=== PATIENT | female | born 1975 | race Caucasian/White ===

== ENCOUNTER 2023-07-27 10:30 | Outpatient (OUT) | payer OTHER, SELFPAY ==
[2023-07-27 12:37] LABS: Estimated Average Glucose 160 mg/dL; Glycohemoglobin A1C 7.2 % (4.5-6.2)
[2023-07-27 14:05] LABS: Glucose 134 mg/dL (74-106); Thyroid Stimulating Hormone 0.868 uIU/mL (0.358-3.740)
[2023-07-27 16:54] LABS: Free T4 1.44 ng/dL (0.76-1.46)
[2023-07-28 04:07] LABS: Progesterone <0.1 ng/mL (.); Sex Horm Binding Glob, Serum 40.9 nmol/L (24.6-122.0)
[2023-07-28 11:08] LABS: Insulin 10.5 uIU/mL (2.6-24.9)
[2023-07-28 12:09] LABS: C-Peptide, Serum 2.4 ng/mL (1.1-4.4)
[2023-07-28 17:09] LABS: Thyroglobulin Antibody <1.0 IU/mL (0.0-0.9); Thyroid Peroxidase (TPO) Ab <9 IU/mL (0-34)
[2023-07-29 12:09] LABS: Calcitriol(1,25 di-OH Vit D) 30.1 pg/mL (24.8-81.5)
[2023-07-29 16:09] LABS: Estrone, Serum 76 pg/mL (.)
[2023-07-30 12:10] LABS: Serotonin, Serum 88 ng/mL (31-207)
[2023-07-31 08:10] LABS: Free Testosterone(Direct) 0.9 pg/mL (0.0-4.2); Testosterone 14 ng/dL (4-50)
[2023-07-31 20:08] LABS: Cortisol, Free Dialysis, LCMS 0.121 ug/dL (.)
[2023-08-01 18:07] LABS: Reverse T3, Serum 38.8 ng/dL (9.2-24.1)
[2023-08-03 03:07] LABS: Thyroglobulin (TG-RIA) 3.8 ng/mL (.)
== END 2023-07-27 10:31 | disposition home or self-care (01) ==
LOC: LAB 10:35
PROVIDERS: Visit Provider Obstetrics & Gynecology
DX: E34.9 Endocrine disorder, unspecified (principal); R68.82 Decreased libido
CPT/HCPCS: 36415; 82530; 82627; 82652; 82670; 82679; 82728; 82947; 83036; 83525; 84144; 84260; 84270; 84402; 84403; 84432; 84436; 84439; 84443; 84481; 84482; 84681; 86376; 86800

== ENCOUNTER 2023-07-27 10:38 | Outpatient (OUT) | payer OTHER, SELFPAY ==
[2023-07-27 11:38] LABS: Hematocrit 40.8 % (36.0-48.0); Hemoglobin 13.7 g/dL (12.0-16.0); Mean Corpuscular HGB Conc 33.6 g/dL (29.9-35.2); Mean Corpuscular Hemoglobin 29.3 pg (26.7-34.0); Mean Corpuscular Volume 87.4 fL (81.0-99.0); Mean Platelet Volume 9.2 fL (9.5-13.5); Platelet Count 299 10^3/uL (150-450); Red Blood Count 4.67 10^6/uL (4.20-5.40); Red Cell Distribution Width 11.9 % (11.0-15.0); White Blood Count 7.9 10^3/uL (4.0-11.0)
[2023-07-27 13:15] LABS: Alanine Aminotransferase 49 U/L (14-59); Albumin Level 3.7 g/dL (3.4-5.0); Alkaline Phosphatase 100 U/L (46-116); Aspartate Amino Transferase 20 U/L (15-37); BUN Creatinine Ratio 22.8; Bilirubin Total 0.8 mg/dL (0.2-1.0); Calcium 9.3 mg/dL (8.5-10.1); Carbon Dioxide 26.8 mmol/L (21.0-32.0); Chloride 100 mmol/L (98-107); Chol HDL Ratio 2.8; Cholesterol 162 mg/dL (<=200); Estimated GFR (African America >60 (>=60); Estimated GFR (Non-African Ame >60 (>=60); Globulin 3.7 g/dL; Glucose 131 mg/dL (74-106); HDL Cholesterol 58 mg/dL (40-60); Magnesium 1.7 mg/dL (1.8-2.4); Potassium 3.8 mmol/L (3.5-5.1); Sodium 138 mmol/L (136-145); Total Protein 7.4 g/dL (6.4-8.2); Triglycerides 169 mg/dL (<=150); VLDL CHOLESTEROL 33.8 mg/dL
[2023-07-27 13:16] LABS: Percent Iron Saturation 34.1 %
[2023-07-27 13:22] LABS: Microalbumin Urine Random 5.2 mg/dL (<=30.0)
== END 2023-07-27 10:39 | disposition home or self-care (01) ==
LOC: LAB 10:39
DX: E34.9 Endocrine disorder, unspecified (principal); R68.82 Decreased libido; E11.9 Type 2 diabetes mellitus without complications; Z79.899 Other long term (current) drug therapy; E03.9 Hypothyroidism, unspecified; E83.42 Hypomagnesemia
CPT/HCPCS: 36415; 80053; 80061; 82043; 82306; 82530; 82607; 82627; 82652; 82670; 82679; 82728; 82947; 83036; 83525; 83540; 83550; 83735; 84144; 84260; 84270; 84402; 84403; 84432; 84436; 84439; 84443; 84481; 84482; 84681; 85027; 86376; 86800

== ENCOUNTER 2023-11-27 08:29 | Outpatient (OUT) | payer OTHER, SELFPAY ==
[2023-11-30 19:07] LABS: Free Testosterone(Direct) 2.2 pg/mL (0.0-4.2); Testosterone 76 ng/dL (4-50)
== END 2023-11-27 08:30 | disposition home or self-care (01) ==
LOC: LAB 08:31
PROVIDERS: Visit Provider Obstetrics & Gynecology
DX: E34.9 Endocrine disorder, unspecified (principal)
CPT/HCPCS: 36415; 84402; 84403

== ENCOUNTER 2023-12-07 20:02 | Outpatient (REF) | payer OTHER, SELFPAY ==
--- OUTSIDE RECORDS SUMMARY | 2023-12-07 20:06 | XMS_ITS | CCD ---
Author Organization [facility] Inform ion Partnership [facility] Care Team Providers Care Rodeo Performer Name Role Phone MARLEE MORENO Admitting Unavailable MARLEE MORENO Attending Unavailable MARLEE MORENO Consulting Unavailable BESSY CYR Referring Unavailable SUSY TERRY Referring Unavailable SHANTI PALMER Primary Care Unavailable ESE LIRA Attending Unavailable SHANTI PALMER Referring Unavailable SHANTI PALMER Primary Care Unavailable Allergies Allergy Classification Reported Allergen(s) Allergy Type Date of Onset Reaction(s) Facility (1 source) BEE VENOM PROTEIN (HONEY BEE); Translations: [BEE VENOM PROTEIN (HONEY BEE)] Propensity to adverse reactions to drug (disorder) 1 [facility] (1 source) BEESWAX; Translations: [BEESWAX] Propensity to adverse reactions to drug (disorder) 9 [facility] Problems Active Problems Problem Classification Problem Date Documented Date Episodic/Chronic Essential hypertension (1 source) Essential (primary) hypertension; Translations: [Essential (primary) hypertension] Onset: 01-25-2020 Chronic Immunizations and screening for infectious disease (1 source) Encounter for screening for human papillomavirus (HPV); Translations: [ENC SCREENING HUMAN PAPILLOMAVIRUS] Onset: 03-23-2019 Episodic Other screening for suspected conditions (not mental disorders or infectious disease) (4 sources) Encounter for screening for malignant neoplasm of cervix; Translations: [ENC SCREENING MALIG NEOPLASM CERV] Onset: 03-20-2019 Episodic Past or Other Problems Problem Classification Problem Date Documented Da te Episodic/Chronic Cardiac dysrhythmias (1 source) Palpitations; Translations: [Palpitations] Onset: 01-25-2020 Episodic Sprains and strains (3 sources) Sprain of unspecified parts of lumbar spine and pelvis, initial encounter; Translations: [Strain of unspecified muscle, fascia and tendon at shoulder and upper arm level, right arm, initial encounter] Onset: 03-22-2023 Episodic Results Test Name Value Interpretation Reference Range Facil ity US PELVIC COMPLETE W/ TVon 1 05-08-2022 US PELVIC COMPLETE W/ TV CLINICAL HISTORY: Abnormal uterine bleeding COMPARISON: NONE. TECHNIQUE: Grayscale images and Doppler images transabdominal and endovaginal images of the pelvis were obtained in multiple planes. FINDINGS: The uterus measures 9.3 x 5.8 x 4.6 cm the uterus is anteverted. There are no solid lesions. There are small calcifications in the uterus. The endometrium measures 3 mm. There is a 7 mm simple cyst in the cervix, nabothian cysts. There is no free fluid. The right ovary measures 5.8 x 3.5 x 4.2 cm there is a simple cyst in the right ovary with a diameter 3.5 x 3.2 x 3.3 cm The left ovary measures 2.6 x 2.1 x 2.6 cm there are no solid or cystic lesions. Both ovaries demonstrate vascular flow. IMPRESSION: The study is within normal limits. There is a simple cyst in the right ovary. There is a nabothian cyst in the cervix. ELECTRONICALLY SIGNED BY: Iron Blanco MD Normal Not Available PAP ACOG PANEL 2: 30 to 65on 03-22-2019 Age Gdln ACOG Testing 30-65 Normal [facility] Comment on above: Performed By: #### [id number] #### [facility] [address] [place] [address] Jacobo Haji COMMENT Comment Normal [facility] Comment on above: Result Comment: Z01.419 Performed at: WB Performed By: #### [id number] #### [facility] [address] [place] [address] Jacobo Haji DIAGNOSIS: Comment Normal [facility] Comment on above: Result Comment: NEGATIVE FOR INTRAEPITHE LIAL LESION OR MALIGNANCY. Performed at: WB Performed By: #### [id number] #### [facility] [address] [place] [address] Jacobo Haji HPV Aptima Negative Normal Negative [facility] Comment on above: Result Comment: This nucleic acid amplif ication test detects fourteen high-risk HPV types (16,18,31,33,35,39,45,51,52,56,58,59,66,68) without differentiation. Performed at: =G Performed By: #### [id number] #### [facility] [address] [place] [address] Jacobo Haji Methodology: Comment [facility] Comment on above: Result Comment: This liquid based ThinPr ep(R) pap test was screened with the use of an image guided system. Performed at: WB Performed By: #### [id number] #### [facility] [address] [place] [address] Jacobo Haji Note: Comment Normal [facility] Comment on above: Result Comment: The Pap smear is a scree kade test designed to aid in the detection of premalignant and malignant conditions of the uterine cervix. It is not a diagnostic procedure and should not be used as the sole means of detecting cervical cancer. Both false-positive and false-negative reports do occur. . Performed at: WB Performed By: #### [id number] #### [facility] [address] [place] [address] Jacobo Haji Performed by: Comment Normal [facility] Comment on above: Result Comment: Mojgan Harris, Cytotechn ologist (ASCP) Performed at: WB Performed By: #### [id number] #### [facility] [address] [place] [address] Jacobo Haji Specimen adequacy: Comment [facility] Comment on above: Result Comment: Satisfactory for evaluat ion. Endocervical and/or squamous metaplastic cells (endocervical component) are present. Performed at: WB Performed By: #### [id number] #### [facility] [address] [place] [address] Jacobo Haji . . Normal [facility] Comment on above: Result Comment: Performed at: WB Performed By: #### [id number] #### [facility] [address] [place] [address] Jacobo Haji Encounters Encounter Date Encounter Type Care Provider Facility Start: 09-28-2023 End: 09-28-2023 [facility] Start: 03-22-2023 End: 04-19-2023 ambulatory SUSY TERRY [facility] Start: 03-08-2023 End: 03-09-2023 ambulatory BESSY CYR Not Available Start: 03-20-2019 End: 03-20-2019 Patient encounter procedure MARLEE MORENO Facility:H1 Procedures Date Procedure Procedure Detail Performing Clinician Start: 09-28-2023 Follow-up visit Follow-up ESE LIRA Payers Date Payer Category Payer Unknown [id number] 1975 Unknown [id number] 2.16.84 [id number] 1975 Unknown [id number] 1975 Unknown [id number] 2.16.8 [id number] 1975 Unknown [id number] 2.16.84 [id number] 1959 Unknown [id number] Summary Purpose Family History No Family History Records FoundNo Family History Records FoundNo Family History Records FoundNo Family History Records Found Advance Directives No Advanced Directives Records FoundNo Advanced Directives Records FoundNo Advanced Directives Records FoundNo Advanced Directives Records Found Additional Source Comments INFORMATION SOURCE (unrecogn ized section and content) DATE CREATED AUTHOR 03/23/2019 [facility] DATE CREATED AUTHOR AUTHOR'S ORGANIZ ATION 03/13/2023 [facility] EPIC DATE CREATED AUTHOR AUTHOR'S ORGANIZ ATION 07/31/2023 [facility] DATE CREATED AUTHOR AUTHOR'S ORGANIZ ATION 09/28/2023 [facility] FOR RECORDS PERTAINING TO PATIENTS WHO ARE OR HAVE BEEN ENROLLED IN A CHEMICAL DEPENDENCY/SUBSTANCEABUSE PROGRAM, SOME INFORMATION MAY BE OMITTED. This clinical summary was aggregated from multiple sources. Caution should be exercised in using it in the provision of clinical care. This summary normalizes information from multiple sources, and as a consequence, information in this document may materially change the coding, format and clinical context of patient data. In addition, data may be omitted in some cases. CLINICAL DECISIONS SHOULD BE BASED ON THE PRIMARY CLINICAL RECORDS. [facility]. provides no warranty or guarantee of the accuracy or completeness of information in this document.
[2023-12-15 13:08] LABS: Age Gdln ACOG Testing Note (.); HPV Aptima Negative (Negative); IGP, Aptima HPV, rfx 16/18,45 Note (.)
== END 2023-12-07 20:03 | disposition home or self-care (01) ==
LOC: LAB 20:02
PROVIDERS: Visit Provider Physician Assistant
DX: Z01.419 Encounter for gynecological examination (general) (routine) without abnormal findings (principal)
CPT/HCPCS: 87624; 88175

== ENCOUNTER 2023-12-30 07:37 | Outpatient (REF) | payer OTHER, SELFPAY ==
--- OUTSIDE RECORDS SUMMARY | 2024-01-10 07:40 | XMS_ITS | CCD ---
Author Organization [facility] Care Team Providers Care Freelance Recruiter Name Role Phone MARLEE MORENO Admitting Unavailable MARLEE MORENO Attending Unavailable MARLEE MORENO Consulting Unavailable GER ABFIOR Referring Unavailable SUSY TERRY Referring Unavailable SHANTI PALMER Primary Care Unavailable ESE LIRA Attending Unavailable SHANTI PALMER Referring Unavailable SHANTI PALMER Primary Care Unavailable DO Rosalva Ho Attending Provider AHMED, ABEER Referring Unavailable KILEY SHELLEY Attending Unavailable ROSALVA HO Attending Unavailable Rosalva Ho Attending Unavailable Rosalva Ho Admitting Unavailable Allergies Allergy Classification Reported Allergen(s) Allergy [...] Results Test Name Value Interpretation Reference Range Jennifer Wilkins 12-30-2023 L Specimen: [id number] Received: 12/31/23 Status: LUANA Harris Num: [id number] Spec Type: Surgical Subm Dr: Rosalva Ho Tissues: A Endometrium - Biopsy (ENDOMETRIUM) Procedures: HE/2, Gross/Micro L4 Age/ Patient Sex Location Account Attending Physician Cecilia Salas 48/F [facility] [id number] Rosalva Ho SPEC NUM: [id number] RECD: 12/31/23 STATUS: LUANA HARRIS NUM: [id number] LOLI: 12/30/23 DR: Rosalva Ho ENTERED: 12/31/[address] [facility] [address]: James,Lab SPEC TYPE: Surgical DEPT: WERNER DORMAN ENTERED BY: [id number] RECV BY: [id number] ORDERED: HE/2, Gross/Micro L4 ORDERED: HE/2, Gross/Micro L4 Pathological Diagnosis Endometrium, biopsy: Secretory endometrium. Clinical Information Menorrhagia Gross Description The specimen was received in formalin with the patient's name and endometrium and consists of multiple calix-pink soft tissue fragments measuring 1.5 x 1.0 x 0.4 cm in aggregate. The specimen is filtered and entirely submitted in cassette A1. CPT Codes 22988 Specimen: [id number] Received: 12/31/23-1353 Status: LUANA Harris Num: [id number] Spec Type: Surgical Subm Dr: Rosalva Ho Tissues: A Endometrium - Biopsy (ENDOMETRIUM) Procedures: HE/2, Gross/Micro L4 Patient: Cecilia Salas [id number] (Continued) Signed (signature on file) Amado Ring MD 01/06/24 1608 Normal [facility] US PELVIC COMPLETE W/ TVon 05-08-2022 US PELVIC COMPLETE W/ TV CLINICAL [...] BY: Iron Blanco MD Normal Not Available US PELVIC COMPLETE W/ TV CLINICAL HISTORY: [...] 03-22-2019 Age Gdln ACOG Testing 30-65 Normal [facility] Comment on above: Performed By: #### [id number] #### [facility] [address] [address] Jacobo Haji COMMENT Comment Normal [facility] Comment on above: Result Comment: Z01.419 Performed at: WB Performed By: #### [id number] #### [facility] [address] [place], [place] [address] Jacobo Haji DIAGNOSIS: Comment Normal [facility] Comment on above: Result Comment: NEGATIVE FOR INTRAEPITHE LIAL LESION OR MALIGNANCY. Performed at: WB Performed By: #### [id number] #### [facility] [address] [id number] Jacobo Haji HPV Aptima Negative Normal Negative [facility] Comment on above: Result Comment: This nucleic acid amplif ication test detects fourteen high-risk HPV types (16,18,31,33,35,39,45,51,52,56,58,59,66,68) without differentiation. Performed at: =G Performed By: #### [id number] #### [facility] [address] [place] [address] Jacobo Haji Methodology: Comment Normal [facility] Comment on above: Result Comment: This liquid based ThinPr ep(R) pap test was screened with the use of an image guided system. Performed at: WB Performed By: #### 4 [id number] #### [facility] [address] [place] [address] Jacobo Haji Note: Comment Normal [facility] Comment on above: Result Comment: The Pap smear is a scree kade test designed to aid in the detection of premalignant and malignant conditions of the uterine cervix. It is not a diagnostic procedure and should not be used as the sole means of detecting cervical cancer. Both false-positive and false-negative reports do occur. . Performed at: WB Performed By: #### [id number] #### [facility] [address] [place] [address] Jacobo Haji Performed by: Comment Normal [facility] Comment on above: Result Comment: Mojgan Harris Cytotechn ologist (ASCP) Performed at: WB Performed By: #### [id number] #### [facility] [address] [place] [address] Jacobo Haji Specimen adequacy: Comment Normal [facility] Comment on above: Result Comment: Satisfactory for evaluat ion. Endocervical and/or squamous metaplastic cells (endocervical component) are present. Performed at: WB Performed By: #### 4 [id number] #### [facility] [address] [place] [address] Jacobo Haji . . Normal [facility] Comment on above: Result Comment: Performed at: WB Performed By: #### [id number] #### [facility] [address] [place] [address] Jacobo Haji Encounters Encounter Date Encounter Type Care Provider Facility Start: 12-30-2023 End: 12-30-2023 ambulatory Rosalva Ho [facility] Work Phone: Start: 12-30-2023 End: 12-30-2023 Departed Referred DO Rosalva Ho Work Phone: [facility] Path [facility] Start: 12-30-2023 End: 12-30-2023 ambulatory ROASLVA HO Not Available Start: 12-07-2023 End: 12-07-2023 ambulatory KILEY SHELLEY Not Available Start: 09-28-2023 End: 09-28-2023 ambulatory ESE LIRA [facility] Start: 03-22-2023 End: 04-19-2023 ambulatory SUSY TERRY [facility] Start: 03-08-2023 End: 03-09-2023 ambulatory ABEER AHMED Not Available Start: 03-08-2023 End: 03-08-2023 ambulatory ABEER AHMED Not Available Start: 03-20-2019 End: 03-20-2019 Patient encounter procedure MARLEE MORENO Facility:H1 Procedures Date Procedure Procedure Detail Performing Clinician Start: 09-28-2023 Follow-up visit Follow-up ESE LIRA Payers Date Payer Category Payer Self-pay [id number] 2023 Unknown [id number] 1975 Unknown [id number] 2.16.84 [id number] 1975 Unknown [id number] 2.16.840 .[id number] 1975 Unknown [id number] 2.16.8 [id number] 1976 Unknown [id number] 2.16.84 [id number] 1976 Unknown [id number] 2.16.84 [id number] 1976 Unknown [id number] 2.16.84 [id number] 1959 Unknown [id number] Unknown [facility] [id number] Social History Date Type Detail Facility [facility] Work Phone: Start: 1975 Sex Assigned At Female F [facility] Evaluation note Note Date & Type Note Facility Evaluation note No assessment information availa ble [facility] Work Phone: Summary Purpose Family History No Family History [...] and content) DATE CREATED AUTHOR 03/23/2019 [facility] DATE CREATED AUTHOR AUTHOR'S ORGANIZ ATION 03/13/2023 [facility] EPIC DATE CREATED AUTHOR AUTHOR'S ORGANIZ ATION 09/28/2023 [facility] DATE CREATED AUTHOR AUTHOR'S ORGANIZ ATION 01/01/2024 [facility] EPIC DATE CREATED AUTHOR AUTHOR'S ORGANIZ ATION 01/02/2024 [facility] DATE CREATED AUTHOR AUTHOR'S ORGANIZ ATION 01/09/2024 [facility] Care Teams (unrecognized sec tion and content) Team Status: Inactive Member Role Status Dates Rosalva Ho DO Attending Provider Active Start : December 30, 2023 End: December 30, 2023 Goals (unrecognized section and content) Goals may be documented in a n alternate section FOR RECORDS PERTAINING TO PATIENTS WHO ARE [...] BE BASED ON THE PRIMARY CLINICAL RECORDS. [facility]. provides no warranty or guarantee of the accuracy or completeness of information in this document.
== END 2023-12-30 07:38 | disposition home or self-care (01) ==
LOC: LAB 07:37
PROVIDERS: Visit Provider Obstetrics & Gynecology
DX: N92.0 Excessive and frequent menstruation with regular cycle (principal)
CPT/HCPCS: 88305

== ENCOUNTER 2024-01-13 12:32 | Outpatient (OUT) | payer OTHER, SELFPAY ==
--- OUTSIDE RECORDS SUMMARY | 2024-01-13 12:40 | XMS_ITS | CCD ---
Author Organization [facility] Care Team Providers Care Deputy Court Clerk Name Role Phone MARLEE MORENO Admitting Unavailable MARLEE MORENO Attending Unavailable MARLEE MORENO Consulting Unavailable GER ABFIOR Referring Unavailable SUSY TERRY Referring Unavailable SHANTI PALMER Primary Care Unavailable ESE LIRA Attending Unavailable SHANTI PALMER Referring Unavailable SHANTI PALMER Primary Care Unavailable DO Rosalva Ho Attending Provider [phone] AHMED, ABEER Referring Unavailable KILEY SHELLEY Attending [...] Reference Range Jennifer Wilkins 12-30-2023 L Specimen: [id number] Received: 12/31/23 Status: LUANA Harris Num: [id number] Spec Type: Surgical Subm Dr: Rosalva Ho Tissues: A Endometrium - Biopsy (ENDOMETRIUM) Procedures: HE/2, Gross/Micro L4 Age/ Patient Sex Location Account Attending Physician Cecilia Salas 48/F [facility] [id number] Rosalva Ho SPEC NUM: [id number] RECD: 12/31/23 STATUS: LUANA HARRIS NUM: [id number] LOLI: 12/30/23 DR: Rosalva Ho ENTERED: 12/31/23 [facility] DR: James,Lab SPEC TYPE: Surgical DEPT: WERNER DORMAN ENTERED BY: [id number] RECV BY: [id number] ORDERED: HE/2, Gross/Micro L4 ORDERED: HE/2, Gross/Micro L4 Pathological Diagnosis Endometrium, biopsy: Secretory endometrium. Clinical Information Menorrhagia Gross Description The specimen was received in formalin with the patient's name and endometrium and consists of multiple calix-pink soft tissue fragments measuring 1.5 x 1.0 x 0.4 cm in aggregate. The specimen is filtered and entirely submitted in cassette A1. CPT Codes 47623 Specimen: [id number] Received: 12/31/23-1353 Status: LUANA Harris Num: [id number] Spec Type: Surgical Subm Dr: Rosalva Ho Tissues: A Endometrium - Biopsy (ENDOMETRIUM) Procedures: HE/2, Gross/Micro L4 Patient: Cecilia Salas [id number] (Continued) Signed (signature on file) Amado Ring MD 01/06/24 1608 Normal [facility] US PELVIC COMPLETE W/ [...] 03-22-2019 Age Gdln ACOG Testing 30-65 Normal [facility] Comment on above: Performed By: #### [id number] #### [facility] [address] [address] Jacobo Haji COMMENT Comment Normal [facility] Comment on above: Result Comment: Z01.419 Performed at: WB Performed By: #### [id number] #### [facility] [address] [place], [place] [address] Jacobo Haji DIAGNOSIS: Comment Normal [facility] Comment on above: Result Comment: NEGATIVE FOR INTRAEPITHE LIAL LESION OR MALIGNANCY. Performed at: WB Performed By: #### [id number] #### [facility] [address] [id number] Jacobo Haji HPV Aptima Negative Normal Negative [facility] Comment on above: Result Comment: This nucleic acid amplif ication test detects fourteen high-risk HPV types (16,18,31,33,35,39,45,51,52,56,58,59,66,68) without differentiation. Performed at: =G Performed By: #### [id number] #### [facility] [address] [place] [address] Jacobo Haji Methodology: Comment Normal [facility] Comment on above: Result Comment: This liquid based ThinPr ep(R) pap test was screened with the use of an image guided system. Performed at: WB Performed By: #### [id number] #### [facility] [address] [place] [address] Jacobo Haji Note: Comment Normal [facility] Comment on above: Result Comment: The Pap smear is a scree kade test designed to aid in the detection of premalignant and malignant conditions of the uterine cervix. It is not a diagnostic procedure and should not be used as the sole means of detecting cervical cancer. Both false-positive and false-negative reports do occur. . Performed at: WB Performed By: #### [id number] #### [facility] [address] [place] [address] Jacobo Haji Performed by: Comment Normal [facility] Comment on above: Result Comment: Mojgan Harris Cytotechn ologist (ASCP) Performed at: WB Performed By: #### [id number] #### [facility] [address] [place] [address] Jacobo Haji Specimen adequacy: Comment Normal [facility] Comment on above: Result Comment: Satisfactory for evaluat ion. Endocervical and/or squamous metaplastic cells (endocervical component) are present. Performed at: WB Performed By: #### [id number] #### [facility] [address] [place] [address] Jacobo Haji . . Normal [facility] Comment on above: Result Comment: Performed at: WB Performed By: #### [id number] #### [facility] [address] [place] [address] Jacobo Haji Encounters Encounter Date Encounter Type Care Provider Facility Start: 12-30-2023 End: 12-30-2023 ambulatory Rosalva Ho [facility] Work Phone: Start: 12-30-2023 End: 12-30-2023 Departed Referred DO Rosalva Ho Work Phone: [facility] Path [facility] Start: 12-30-2023 End: 12-30-2023 ambulatory ROSALVA HO Not Available Start: 12-07-2023 End: 12-07-2023 ambulatory KILEY SHELLEY Not Available Start: 09-28-2023 End: 09-28-2023 ambulatory ESE LIRA [facility] Start: 03-22-2023 End: 04-19-2023 ambulatory SUSY TERRY [facility] Start: 03-08-2023 End: 03-09-2023 ambulatory ABEER AHMED Not Available Start: 03-08-2023 End: 03-08-2023 ambulatory ABEER AHMED Not Available Start: 03-20-2019 End: 03-20-2019 Patient encounter procedure MARLEE MORENO Facility:H1 Procedures Date Procedure Procedure Detail Performing Clinician Start: 09-28-2023 Follow-up visit Follow-up ESE LIRA Payers Date Payer Category Payer Self-pay [id number] 2023 Unknown [id number] 1975 Unknown [id number] 2.16.84 [id number] 1975 Unknown [id number] 2.16.840 .[id number] 1975 Unknown [id number] 2.16.8 [id number] 1975 Unknown [id number] 2.16.84 [id number] 1975 Unknown [id number] 2.16.84 [id number] 1976 Unknown [id number] 2.16.84 [id number] 1959 Unknown [id number] Unknown [facility] [id number] Social History Date Type Detail Facility [facility] Work Phone: Start: 1975 Sex Assigned At Female F [facility] Evaluation note Note Date & Type Note Facility Evaluation note No assessment information availa ble [facility] Work Phone: Summary Purpose Family [...] and content) DATE CREATED AUTHOR 03/23/2019 [facility] DATE CREATED AUTHOR AUTHOR'S ORGANIZ ATION 03/13/2023 [facility] EPIC DATE CREATED AUTHOR AUTHOR'S ORGANIZ ATION 09/28/2023 [facility] DATE CREATED AUTHOR AUTHOR'S ORGANIZ ATION 01/01/2024 [facility] EPIC DATE CREATED AUTHOR AUTHOR'S ORGANIZ ATION 01/02/2024 [facility] DATE CREATED AUTHOR AUTHOR'S ORGANIZ ATION 01/09/2024 [facility] Care Teams (unrecognized sec [...] BE BASED ON THE PRIMARY CLINICAL RECORDS. [facility]. provides no warranty or guarantee of the accuracy or completeness of information in this document.
== END 2024-01-13 12:33 | disposition home or self-care (01) ==
LOC: PST 12:32
PROVIDERS: Visit Provider Obstetrics & Gynecology
DX: Z01.818 Encounter for other preprocedural examination (principal); Z30.2 Encounter for sterilization; N92.0 Excessive and frequent menstruation with regular cycle; N93.9 Abnormal uterine and vaginal bleeding, unspecified; R10.2 Pelvic and perineal pain

== ENCOUNTER 2024-01-14 16:57 | Outpatient (OUT) | payer OTHER, SELFPAY ==
--- OUTSIDE RECORDS SUMMARY | 2024-01-14 17:01 | XMS_ITS | CCD ---
Author Organization [facility] Care Team Providers Care Front End Architect Name Role Phone MARLEE MORENO Admitting Unavailable [...] Reference Range Jennifer Wilkins 12-30-2023 L Specimen: [id number] Received: 12/31/23 Status: LUANA Harris Num: [id number] Spec Type: Surgical Subm Dr: Rosalva Ho Tissues: A Endometrium - Biopsy (ENDOMETRIUM) Procedures: HE/2, Gross/Micro L4 Age/ Patient Sex Location Account Attending Physician Cecilia Salas 48/F LABELL [id number] Rosalva Ho SPEC NUM: [id number] RECD: 12/31/23 STATUS: LUANA HARRIS NUM: [id number] LOLI: 12/30/23 DR: Rosalva Ho ENTERED: 12/31/[address] [facility] [address]: James,Lab SPEC TYPE: Surgical DEPT: WERNER DORMAN ENTERED BY: [id number] RECV BY: [id number] ORDERED: HE/2, Gross/Micro L4 ORDERED: HE/2, Gross/Micro L4 Pathological Diagnosis Endometrium, biopsy: Secretory endometrium. Clinical Information Menorrhagia Gross Description The specimen was received in formalin with the patient's name and endometrium and consists of multiple calix-pink soft tissue fragments measuring 1.5 x 1.0 x 0.4 cm in aggregate. The specimen is filtered and entirely submitted in cassette A1. CPT Codes 30376 Specimen: [id number] Received: 12/31/23-1353 Status: LUANA Harris Num: [id number] Spec Type: Surgical Subm Dr: Rosalva Ho Tissues: A Endometrium - Biopsy (ENDOMETRIUM) Procedures: HE/2, Gross/Micro L4 Patient: Cecilia Salas [id number] (Continued) Signed (signature on file) Amado Ring MD 01/06/24 1608 Normal [facility] US PELVIC COMPLETE W/ [...] 03-22-2019 Age Gdln ACOG Testing 30-65 Normal [facility] Comment on above: Performed By: #### [id number] #### [facility] [address] [address] Jacobo Haji COMMENT Comment Normal [facility] Comment on above: Result Comment: Z01.419 Performed at: WB Performed By: #### [id number] #### [facility] [address], [place] [address] Jacobo Haji DIAGNOSIS: Comment Normal [facility] Comment on above: Result Comment: NEGATIVE FOR INTRAEPITHE LIAL LESION OR MALIGNANCY. Performed at: WB Performed By: #### [id number] #### [facility] [address] [id number] Jacobo Haji HPV Aptima Negative Normal Negative [facility] Comment on above: Result Comment: This nucleic acid amplif ication test detects fourteen high-risk HPV types (16,18,31,33,35,39,45,51,52,56,58,59,66,68) without differentiation. Performed at: =G Performed By: #### [id number] #### [facility] [address] [place] [address] Jacobo Haji Methodology: Comment Normal [facility] Comment on above: Result Comment: This liquid based ThinPr ep(R) pap test was screened with the use of an image guided system. Performed at: WB Performed By: #### [id number] #### [facility] [address] [place] [address] Jacobo Haji Note: Comment Normal [facility] Comment on above: Result Comment: The Pap smear is a scree kade test designed to aid in the detection of premalignant and malignant conditions of the uterine cervix. It is not a diagnostic procedure and should not be used as the sole means of detecting cervical cancer. Both false-positive and false-negative reports do occur. . Performed at: WB Performed By: #### [id number] #### [facility] [address] [place] [address] Jacobo Haji Performed by: Comment Normal [facility] Comment on above: Result Comment: Mojgan Harris Cytotechn ologist (ASCP) Performed at: WB Performed By: #### [id number] #### [facility] [address] [place] [address] Jacboo Haji Specimen adequacy: Comment Normal [facility] Comment on above: Result Comment: Satisfactory for evaluat ion. Endocervical and/or squamous metaplastic cells (endocervical component) are present. Performed at: WB Performed By: #### [id number] #### [facility] [address] [place] [address] Jacobo Haji . . Normal [facility] Comment on above: Result Comment: Performed at: WB Performed By: #### 4 [id number] #### [facility] [address] [place] [address] Jacobo Haji Encounters Encounter Date Encounter Type Care Provider Facility Start: 12-30-2023 End: 12-30-2023 ambulatory Rosalva Ho [facility] Work Phone: Start: 12-30-2023 End: 12-30-2023 Departed Referred DO Rosalva Ho Work Phone: [facility] Path Spec [facility] Start: 12-30-2023 End: 12-30-2023 ambulatory ROSALVA HO Not Available Start: 12-07-2023 End: 12-07-2023 ambulatory KILEY SHELLEY Not Available Start: 09-28-2023 End: 09-28-2023 ambulatory ESE LIRA [facility] Start: 03-22-2023 End: 04-19-2023 ambulatory SUSY TERRY [facility] Start: 03-08-2023 End: 03-09-2023 ambulatory ABEER AHMED Not Available Start: 03-08-2023 End: 03-08-2023 ambulatory ABEER AHMED Not Available Start: 03-20-2019 End: 03-20-2019 Patient encounter procedure MARLEE MORENO Facility:H1 Procedures Date Procedure Procedure Detail Performing Clinician Start: 09-28-2023 Follow-up visit Follow-up ESE LIRA Payers Date Payer Category Payer Self-pay [id number] 2023 Unknown [id number] 1975 Unknown [id number] 2.16.84 [id number] 1975 Unknown [id number] 2.16.840 .[id number] 1975 Unknown [id number] 2.16.8 [id number] 1976 Unknown [id number] 2.16.84 0.1.199485.3.579.2.1286 1976 Unknown [id number] 2.16.84 0.1.025022.3.579.2.9 1976 Unknown [id number] 2.16.84 [id number] 1959 Unknown [id number] Unknown [facility] [id number] Social History Date Type Detail Facility [facility] Work Phone: Start: 1975 Sex Assigned At Female F [facility] Evaluation note Note Date & Type Note Facility Evaluation note No assessment information availa ble [facility] Work Phone: Summary Purpose Family History [...] and content) DATE CREATED AUTHOR 03/23/2019 [facility] DATE CREATED AUTHOR AUTHOR'S ORGANIZ ATION 03/13/2023 [facility] EPIC DATE CREATED AUTHOR AUTHOR'S ORGANIZ ATION 09/28/2023 [facility] DATE CREATED AUTHOR AUTHOR'S ORGANIZ ATION 01/01/2024 [facility] EPIC DATE CREATED AUTHOR AUTHOR'S ORGANIZ ATION 01/02/2024 [facility] DATE CREATED AUTHOR AUTHOR'S ORGANIZ ATION 01/09/2024 [facility] Care Teams (unrecognized sec tion [...] BE BASED ON THE PRIMARY CLINICAL RECORDS. [facility] [employer] [facility]. provides no warranty or guarantee of the accuracy or completeness of information in this document.
[2024-01-14 17:45] LABS: Anion Gap 10.3; BUN Creatinine Ratio 24.6; Calcium 9.3 mg/dL (8.5-10.1); Carbon Dioxide 29.7 mmol/L (21.0-32.0); Chloride 100 mmol/L (98-107); Estimated GFR (African America >60 (>=60); Estimated GFR (Non-African Ame >60 (>=60); Glucose 187 mg/dL (74-106); Sodium 136 mmol/L (136-145)
== END 2024-01-14 16:58 | disposition home or self-care (01) ==
LOC: LAB 16:57
PROVIDERS: Visit Provider Obstetrics & Gynecology
DX: Z01.812 Encounter for preprocedural laboratory examination (principal); N92.0 Excessive and frequent menstruation with regular cycle; N93.9 Abnormal uterine and vaginal bleeding, unspecified; R10.2 Pelvic and perineal pain
CPT/HCPCS: 36415; 80048

== ENCOUNTER 2024-01-28 06:03 | Day surgery (SDC) | payer OTHER, SELFPAY ==
[2024-01-28] VITALS (15 sets, daily range): BP systolic 127–151; BP diastolic 67–88; PULSE 66–92; TEMP 36.2–36.3; O2SAT 90–99; BMI 31.8
--- OUTSIDE RECORDS SUMMARY | 2024-01-28 06:08 | XMS_ITS | CCD ---
Author Organization [facility] Care Team Providers Care Jig Filler Name Role Phone MARLEE MORENO Admitting Unavailable [...] Reference Range Jennifer Wilkins 12-30-2023 L Specimen: [id number] Received: 12/31/23 Status: LUANA Harris Num: [id number] Spec Type: Surgical Subm Dr: Rosalva Ho Tissues: A Endometrium - Biopsy (ENDOMETRIUM) Procedures: HE/2, Gross/Micro L4 Age/ Patient Sex Location Account Attending Physician Cecilia Salas 48/F LABE[facility] [id number] Rosalva Ho SPEC NUM: [id number] RECD: 12/31/23 STATUS: LUANA HARRIS NUM: [id number] LOLI: 12/30/23 DR: Rosalva Ho ENTERED: 12/31/[address] [facility] [address]: James,Lab SPEC TYPE: Surgical DEPT: WERNER DORMAN ENTERED BY: [id number] RECV BY: [id number] ORDERED: HE/2, Gross/Micro L4 ORDERED: HE/2, Gross/Micro L4 Pathological Diagnosis Endometrium, biopsy: Secretory endometrium. Clinical Information Menorrhagia Gross Description The specimen was received in formalin with the patient's name and endometrium and consists of multiple calix-pink soft tissue fragments measuring 1.5 x 1.0 x 0.4 cm in aggregate. The specimen is filtered and entirely submitted in cassette A1. CPT Codes 29737 Specimen: [id number] Received: 12/31/23-1353 Status: LUANA Harris Num: [id number] Spec Type: Surgical Subm Dr: Rosalva Ho Tissues: A Endometrium - Biopsy (ENDOMETRIUM) Procedures: HE/2, Gross/Micro L4 Patient: Cecilia Salas [id number] (Continued) Signed (signature on file) Amado Ring MD 01/06/24 1608 Normal [facility] US PELVIC COMPLETE W/ TVon [...] 03-22-2019 Age Gdln ACOG Testing 30-65 Normal [facility] Comment on above: Performed By: #### [id number] #### [facility] [address] [address] Jacobo Haji COMMENT Comment Normal [facility] Comment on above: Result Comment: Z01.419 Performed at: WB Performed By: #### [id number] #### [facility] [address], [place] [address] Jacobo Haji DIAGNOSIS: Comment Normal [facility] Comment on above: Result Comment: NEGATIVE FOR INTRAEPITHE LIAL LESION OR MALIGNANCY. Performed at: WB Performed By: #### [id number] #### [facility] [address] [id number] Jacobo Haji HPV Aptima Negative Normal Negative [facility] Comment on above: Result Comment: This nucleic acid amplif ication test detects fourteen high-risk HPV types (16,18,31,33,35,39,45,51,52,56,58,59,66,68) without differentiation. Performed at: =G Performed By: #### 4 [id number] #### [facility] [address] [place] [address] Jacobo Haji Methodology: Comment Normal [facility] Comment on above: Result Comment: This liquid based ThinPr ep(R) pap test was screened with the use of an image guided system. Performed at: WB Performed By: #### [id number] #### [facility] [address] [place] [address] Jacobo Haji Note: Comment Normal [facility] Comment on above: Result Comment: The Pap smear is a scree kade test designed to aid in the detection of premalignant and malignant conditions of the uterine cervix. It is not a diagnostic procedure and should not be used as the sole means of detecting cervical cancer. Both false-positive and false-negative reports do occur. . Performed at: WB Performed By: #### [id number] #### [facility] [address] [place] [address] Jacobo Haji Performed by: Comment Normal [facility] Comment on above: Result Comment: Mojgan Harris Cytotechn ologist (ASCP) Performed at: WB Performed By: #### [id number] #### [facility] [address] [place] [address] Jacobo Haji Specimen adequacy: Comment Normal [facility] Comment on above: Result Comment: Satisfactory for evaluat ion. Endocervical and/or squamous metaplastic cells (endocervical component) are present. Performed at: WB Performed By: #### [id number] #### [facility] [address] [place] [address] Jacobo Haji . . Normal [facility] Comment on above: Result Comment: Performed at: WB Performed By: #### [id number] #### [facility] [address] [place] [address] Jacobo Haji Encounters Encounter Date Encounter Type Care Provider Facility Start: 12-30-2023 End: 12-30-2023 ambulatory Rosalva Ho [facility] Work Phone: Start: 12-30-2023 End: 12-30-2023 Departed Referred DO Rosalva Ho Work Phone: [facility] Start: 12-30-2023 End: 12-30-2023 ambulatory ROSALVA HO Not Available Start: 12-07-2023 End: 12-07-2023 ambulatory KILEY SHELLEY Not Available Start: 09-28-2023 End: 09-28-2023 ambulatory ESE LIRA [facility] Start: 03-22-2023 End: 04-19-2023 ambulatory SUSY TERRY [facility] Start: 03-08-2023 End: 03-09-2023 ambulatory ABEER AHMED Not Available Start: 03-08-2023 End: 03-08-2023 ambulatory ABEER AHMED Not Available Start: 03-20-2019 End: 03-20-2019 Patient encounter procedure MARLEE MORENO Facility:H1 Procedures Date Procedure Procedure Detail Performing Clinician Start: 09-28-2023 Follow-up visit Follow-up ESE LIRA Payers Date Payer Category Payer Self-pay [id number] 2023 Unknown [id number] 1975 Unknown [id number] 2.16.84 [id number] 1975 Unknown [id number] 2.16.840 .[id number] 1975 Unknown [id number] 2.16.8 40.1.113069.3.579.2.1286 1976 Unknown [id number] 2.16.84 0.1.984623.3.579.2.1286 1976 Unknown [id number] 2.16.84 0.1.259096.3.579.2.9 1976 Unknown [id number] 2.16.84 0.1.778909.3.579.2.1259 1959 Unknown [id number] Unknown [facility] [id number] Social History Date Type Detail Facility [facility] Work Phone: Start: 1975 Sex Assigned At Female F [facility] Evaluation note Note Date & Type Note Facility Evaluation note No assessment information availa ble [facility] Work Phone: Summary Purpose Family [...] and content) DATE CREATED AUTHOR 03/23/2019 [facility] DATE CREATED AUTHOR AUTHOR'S ORGANIZ ATION 03/13/2023 [facility] EPIC DATE CREATED AUTHOR AUTHOR'S ORGANIZ ATION 09/28/2023 [facility] DATE CREATED AUTHOR AUTHOR'S ORGANIZ ATION 01/01/2024 [facility] EPIC DATE CREATED AUTHOR AUTHOR'S ORGANIZ ATION 01/02/2024 [facility] DATE CREATED AUTHOR AUTHOR'S ORGANIZ ATION 01/09/2024 [facility] Care Teams (unrecognized sec [...] BE BASED ON THE PRIMARY CLINICAL RECORDS. [facility]. provides no warranty or guarantee of the accuracy or completeness of information in this document.
[2024-01-28 06:18] LABS: Basophils Percent Auto 0.3 % (0.2-2.0); Eosinophils Absolute Auto 0.1 10^3/uL (0.0-0.7); Eosinophils Percent Auto 0.9 % (0.9-7.0); Hematocrit 38.8 % (36.0-48.0); Hemoglobin 13.4 g/dL (12.0-16.0); Immature Granulocytes Abs Auto 0.02 10^3/uL (0.00-0.03); Immature Granulocytes Pct Auto 0.2 % (0.0-0.5); Lymphocytes Absolute Auto 2.9 10^3/uL (1.2-3.8); Lymphocytes Percent Auto 29.4 % (20.5-60.0); Mean Corpuscular HGB Conc 34.5 g/dL (29.9-35.2); Mean Platelet Volume 8.9 fL (9.5-13.5); Monocytes Absolute Auto 0.6 10^3/uL (0.3-0.8); Monocytes Percent Auto 6.5 % (1.7-12.0); Neutrophils Absolute Auto 6.1 10^3/uL (1.4-6.5); Neutrophils Percent Auto 62.7 % (43.0-75.0); Platelet Count 260 10^3/uL (150-450); Red Blood Count 4.46 10^6/uL (4.20-5.40); Red Cell Distribution Width 12.1 % (11.0-15.0); White Blood Count 9.7 10^3/uL (4.0-11.0)
[2024-01-28 06:25] LABS: Glucometer 183 mg/dL (74-106)
[2024-01-28 06:41] LABS: HCG Quantitative <1 mIU/mL
[2024-01-28] MEDS: 0.9 % SODIUM CHLORIDE 500 ML 50 ML IV (06:52)
[2024-01-28] MEDS: LACTATED RINGER'S SOLUTION 1,000 ML 50 ML IV (08:15)
--- NOTE | 2024-01-28 08:50 | P.ON_ITS ---
Brief Operative Note Date of procedure: 01/28/24 Pre-op diagnosis general: aub, desires permanent sterilization Post-op diagnosis: same as pre-op Procedure: NAME OF PROCEDURE: robotic assisted Laparoscopic bilateral salpingectomy, with Nayeli endometrial ablation with hysteroscopy PROCEDURE: The patient was taken back to the OR where she was prepped and draped in the normal sterile fashion after being placed in the dorsal lithotomy position, after being placed under general anesthesia without difficulty. a weighted speculum was then placed into the vagina. Pap and endometrial bx were performed without difficultyThe anterior lip was grasped with a single tooth tenaculum. The patient was then sounded to approximatley 9cm. The patient was gently sounded using Hegar dilators and the hysteroscope was passed through the cervix into the uterus where both ostia were seen. No gross evidence of polyps, fibroids or malignancy. The cervical length was noted to be 4cm. The Nayeli ablation apparatus was set to approximately 5cm in length. This was placed in through the cervix and into the uterus. After the seal was tested, at that time the total ablation of 120 seconds was performed with the Nayeli without difficulty. All instruments were removed from the vagina. A wet sponge stick was placed into the patient's vagina. Attention was then turned to the patient's abdomen, where a scalpel was used to make a small infraumbilical incision. The S retractors were then used to dissect the underlying layers until the fascia could be seen. The fascia was then grasped with Radha clamps and tented up. A knife was then used to make a small incision to the fascia. The muscle was identified, at that time two sutures of #0 Vicryl on a GI needlewas then used and placed through the fascia. The peritoneum was then identified and entered bluntly. The 10-4 Stepan was then placed into the patient's abdomen. This was confirmed with direct visualization of the bowel, using the laparoscope. The patient's abdomen was then insufflated using approximately 4 liters of CO2 gas. Survey of the patient's abdomen demonstrated normal appearing ovaries, uterus and tubes. A second and third lateral robotic ports, which was 8mm in size, was then placed laterally after incision was made in the skin under direct visualization. the robotic arms were engaged. The patient's tube on the patient's right side was identified. The tube was then tented up using a grasper. The ligasure was used to transect and coagulate the mesosalpingx from the fimbriated end to the insertion at the uterus, the tube was amputated and removed in its entirety.? Excellent hemostasis was noted. ?This was performed on the contralateral sideas well. The lateral ports were then moved under direct visualization with excellent hemostasis. The abdomen was deinsufflated. All instruments were removed from the patient's abdomen. The fascia was closed using the #0 Vicryl on GI needle. The skin was closed using 4- 0 Vicryl subcuticularly. All instruments were removed from the patient's vagina as well. The patient was taken out of the dorsal lithotomy position and placed in the supine position and taken to recovery in stable condition. Sponge, lap and needle counts were correct x2. ??? Anesthesia: JAEA Surgeon: Chirag Ho Estimated blood loss (mL): 5 Pathology: other (bilateral tubes) Condition: stable Disposition: PACU Urinary Catheter Management Urinary Catheter Management Urethral: Cath placed during this visit: no
[2024-01-28] MEDS: HYDROCODONE/ACET 5-325 MG TABLET 1 TAB PO (09:27)
[2024-01-28] MEDS: MEPERIDINE HCL/PF 25 MG/ML VIAL IM (10:58)
[2024-01-28] MEDS: PROMETHAZINE HCL 25 MG/ML VIAL IM (10:59)
--- NOTE | 2024-01-28 11:13 | PC.NURSE ---
1059- Patient is nauseated with vomiting. Medicated with Phenergan
== END 2024-01-28 12:10 | disposition home or self-care (01) ==
PROVIDERS: PCP Nurse Practitioner; Visit Provider Obstetrics & Gynecology
PROC: (CPT 840; principal; 2024-01-28 07:30)
DX: Z30.2 Encounter for sterilization (principal); N92.0 Excessive and frequent menstruation with regular cycle; N93.9 Abnormal uterine and vaginal bleeding, unspecified; R10.2 Pelvic and perineal pain; N83.8 Other noninflammatory disorders of ovary, fallopian tube and broad ligament; Z90.49 Acquired absence of other specified parts of digestive tract; E78.5 Hyperlipidemia, unspecified; I10 Essential (primary) hypertension; E11.9 Type 2 diabetes mellitus without complications; Z79.84 Long term (current) use of oral hypoglycemic drugs; E03.9 Hypothyroidism, unspecified
CPT/HCPCS: 00840; 00952; 58563; 58661; 36415; 82948; 84702; 85025; 88305; J0131; J1100; J1171; J1885; J2175; J2250; J2405; J2704; J3010

== ENCOUNTER 2025-01-31 14:37 | Outpatient (REF) | payer BC, SELFPAY ==
--- OUTSIDE RECORDS SUMMARY | 2025-01-31 14:44 | XMS_ITS | CCD ---
Author Organization [facility] Care Team Providers Care Central Office Repairer Name Role Phone MARLEE MORENO Admitting Unavailable MARLEE MORENO Attending Unavailable MARLEE MORENO Consulting Unavailable AHMED, ABEER Referring Unavailable DO Chirag Ho Attending Provider Chirag Ho Attending Unavailable Chirag Ho Admitting Unavailable Unavailable Primary Care Provider UnavailMary Aragon Unavailable Chirag Ho Attending Unavailable Brijesh Hoy Admitting Unavailable ESE LIRA Attending Unavailable ANGLIM, SHANTI A Referring Unavailable ANGLIM, SHANTI A Primary Care Unavailable BETSEY RODRIGUEZ Referring Unavailable ANGLIM, SHANTI A Primary Care Unavailable DONNA, EVENS Primary Care Unavailable DONNA, EVENS Primary Care Unavailable GISSELLE PENG Attending Unavailable CLEO ANTUNEZ Attending Unavailable MEDARDO MULTANI Attending Unavailable RYANNE LEMOS Attending Unavailable MARY SHELLEY Attending Unavailable VIC, CHIRAG Attending Unavailable VIC, CHIRAG Attending Unavailable Allergies Allergy Classification Reported Allergen(s) Allergy Type Date of Onset Reaction(s) Facility (19 sources) beeswax; Translations: [BEESWAX] Drug Allergy 9 [facility] (18 sources) Honey bee venom Propensity to adverse reactions 1 [facility] Work Phone: (1 source) BEE VENOM PROTEIN (HONEY BEE); Translations: [BEE VENOM PROTEIN (HONEY BEE)] Propensity to adverse reactions to drug (disorder) 1 [facility] Medications Current Medications Medication Drug Class(es) Dates Sig (Normalized) Sig (Original) atorvastatin 20 mg oral tablet (14 sources) HMG-CoA Reductase Inhibitor take 1 tablet by mouth in the morning atorvastatin (Lipitor) 20 MG tablet Take 20 mg by mouth in the morning. Active cephalexin 500 mg oral capsule (2 sources) Cephalosporin Antibacterial Start: 02-03-2024 End: 02-10-2024 take 1 capsule by mouth in the morning, then take 1 capsule by mouth in the evening, then take 1 capsule by mouth at bedtime cephalexin (Keflex) 500 MG capsule Indications: Postoperative examination , Urinary tract infection without hematuria, site unspecified Take 1 capsule (500 mg) by mouth in the morning and 1 capsule (500 mg) in the evening and 1 capsule (500 mg) before bedtime. Do all this for 7 days. 21 capsule 02/03/2024 02/10/2024 Active cholecalciferol 0.05 mg oral tablet (14 sources) Vitamin D take 1 tablet by mouth in the morning cholecalciferol (Vitamin D-3) 50 MCG (2000 UT) tablet Take 2,000 Units by mouth in the morning. Active fluconazole 150 mg oral tablet (1 source) Azole Antifungal Start: 12-30-2023 End: 01-03-2024 fluconazole (Diflucan) 150 MG tablet Indications: Yeast infection Take 1 tablet (150 mg) by mouth every 3 (three) days for 2 doses This is a 1 time dose, take single tablet by mouth. 2 tablet 12/30/2023 01/03/2024 Active levothyroxine sodium 0.1 mg oral tablet (14 sources) l-Thyroxine take 1 tablet by mouth in the morning levothyroxine (Synthroid, Levoxyl) 100 MCG tablet Take 100 mcg by mouth in the morning. Active metFORMIN hydrochloride 500 mg oral tablet (14 sources) Biguanide take 2 tablets by mouth in the morning metFORMIN (Glucophage) 500 MG tablet Take 1,000 mg by mouth in the morning and 1,000 mg in the evening. Take with meals. Active montelukast 10 mg oral tablet (7 sources) Leukotriene Receptor Antagonist Start: 08-23-2023 take 1 tablet by mouth once daily montelukast (Singulair) 10 MG tablet Take 10 mg by mouth Daily 08/23/2023 Active nitrofurantoin, macrocrystals 25 mg / nitrofurantoin, monohydrate 75 mg oral capsule (1 source) Nitrofuran Antibacterial Start: 12-30-2023 End: 01-06-2024 take 1 capsule by mouth in the morning nitrofurantoin, macrocrystal-monohyd rate, (Macrobid) 100 MG capsule Indications: Urinary tract infection without hematuria, site unspecified Take 1 capsule (100 mg) by mouth in the morning and 1 capsule (100 mg) before bedtime. Do all this for 7 days. 14 capsule 12/30/2023 01/06/2024 Active Completed/Discontinued Medications Medication Drug Class(es) Dates Sig (Normalized) Sig (Original) azithromycin 250 mg oral tablet (2 sources) Macrolide Antimicrobial Start: 02-17-2024 End: 07-26-2024 azithromycin (Zithromax Z-Guillermo) 250 MG tablet Indications: Upper respiratory tract infection, unspecified type As directed 6 tablet 02/17/2024 07/26/2024 Discontinued phenazopyridine hydrochloride 100 mg oral tablet (6 sources) Start: 02-03-2024 End: 07-26-2024 phenazopyridine (Pyridium) 100 MG tablet Indications: Postoperative examination , Urinary tract infection without hematuria, site unspecified Take 1 tablet (100 mg) by mouth 3 (three) times a day as needed for bladder spasms for up to 6 doses 6 tablet 02/03/2024 07/26/2024 Discontinued Problems Active Problems Problem Classification Problem Date Documented Date Episodic/Chronic Abdominal pain (1 source) Pain in pelvis; Translations: [Pelvic and perineal pain] 12-30-2023 Episodic Conditions associated with dizziness or vertigo (5 sources) Dizziness; Translations: [Dizziness and giddiness] 07-27-2024 Episodic Contraceptive and procreative management (1 source) Sterilization requested; Translations: [Encounter for sterilization] 12-30-2023 Episodic Disorders of teeth and jaw (3 sources) Periapical abscess without sinus; Translations: [Toothache] Onset: 05-24-2024 Episodic Immunizations and screening for infectious disease (1 source) Encounter for screening for human papillomavirus (HPV); Translations: [ENC SCREENING HUMAN PAPILLOMAVIRUS] Onset: 03-23-2019 Episodic Menstrual disorders (1 source) Menorrhagia; Translations: [Excessive and frequent menstruation with regular cycle] 12-30-2023 Chronic Mycoses (1 source) Mycosis; Translations: [Candidiasis, unspecified] 12-30-2023 Episodic Other aftercare (2 sources) Surgical follow-up; Translations: [Encounter for follow-up examination after completed treatment for conditions other than malignant neoplasm] 02-03-2024 Episodic Other ear and sense organ disorders (3 sources) Sensorineural hearing loss, bilateral; Translations: [Sensorineural hearing loss, bilateral] 07-27-2024 Chronic Other female genital disorders (1 source) Abnormal uterine bleeding; Translations: [Abnormal uterine and vaginal bleeding, unspecified] 12-30-2023 Chronic Other skin disorders (1 source) Facial swelling Onset: 05-24-2024 Episodic Other upper respiratory disease (2 sources) Chronic rhinitis; Translations: [Chronic rhinitis] 07-27-2024 Chronic Otitis media and related conditions (3 sources) Dysfunction of bilateral eustachian tubes; Translations: [Unspecified Eustachian tube disorder, bilateral] 07-27-2024 Episodic Urinary tract infections (3 sources) Urinary tract infectious disease; Translations: [Urinary tract infection, site not specified] 02-03-2024 Episodic Past or Other Problems Problem Classification Problem Date Documented Da te Episodic/Chronic Anxiety disorders (7 sources) Anxiety; Translations: [Anxiety disorder, unspecified] Onset: 09-09-2022 Resolved: 07-26-2024 07-26-2024 Chronic Calculus of urinary tract (7 sources) Kidney stone; Translations: [Calculus of kidney] Onset: 09-09-2022 Resolved: 07-26-2024 07-26-2024 Episodic Cardiac dysrhythmias (8 sources) Palpitations; Translations: [Palpitations] Onset: 01-25-2020 Resolved: 07-26-2024 07-26-2024 Episodic Deficiency and other anemia (7 sources) Anemia; Translations: [Anemia, unspecified] Onset: 09-09-2022 Resolved: 07-26-2024 07-26-2024 Episodic Diabetes mellitus without complication (7 sources) Type 2 diabetes mellitus; Translations: [Type 2 diabetes mellitus without complications] Onset: 09-09-2022 Resolved: 07-26-2024 07-26-2024 Chronic Disorders of lipid metabolism (7 sources) Hyperlipidemia; Translations: [Hyperlipidemia, unspecified] Onset: 09-09-2022 Resolved: 07-26-2024 07-26-2024 Chronic Essential hypertension (8 sources) Essential (primary) hypertension; Translations: [Essential hypertension] Onset: 01-25-2020 Resolved: 07-26-2024 07-26-2024 Chronic Heart valve disorders (7 sources) Heart murmur; Translations: [Cardiac murmur, unspecified] Onset: 01-25-2020 Resolved: 07-26-2024 07-26-2024 Episodic Other endocrine disorders (18 sources) Disorder of endocrine system; Translations: [Endocrine disorder, unspecified] Onset: 06-28-2023 06-28-2023 Episodic Other screening for suspected conditions (not mental disorders or infectious disease) (7 sources) Encounter for screening for malignant neoplasm of cervix; Translations: [Patient encounter status] Onset: 03-20-2019 12-07-2023 Episodic Residual codes; unclassified (18 sources) Reduced libido; Translations: [Decreased libido] Onset: 06-28-2023 06-28-2023 Episodic Thyroid disorders (7 sources) Hypothyroidism; Translations: [Hypothyroidism, unspecified] Onset: 09-09-2022 Resolved: 07-26-2024 07-26-2024 Chronic Results Test Name Value Interpretation Reference Range Facility Auditory function testson Pt claustrophobic - [place] door open during test Right Ear: Mild sensorineural hearing loss above 4K Hz Left Ear: Mild to moderate sensorineural hearing loss above 4K Hz Hallpike: Positive head right, worse sit to supine Negative head left [facility] Healthcare [facility] Health[facility] No Panel Informationon 02-02 STAPHYLOCOCCUS EPIDERMIDIS, HAEMOLYTICUS, LUGDUNENSIS, SAPROPHYTICUS (URINA 0 [facility] care STAPHYLOCOCCUS EPIDERMIDIS, HAEMOLYTICUS, LUGDUNENSIS, SAPROPHYTICUS (URINA Not detected [facility] care URINARY TRACT INFECTION (HTR X)on 02-03-2024 ACINETOBACTER BAUMANII 0 [facility] Healthcare ACINETOBACTER BAUMANII Not detected [facility] Healthcare ADELITA ALBICANS, PARAPSILOSIS, TROPICALIS 0 [facility] Healthcare ADELITA ALBICANS, PARAPSILOSIS, TROPICALIS Not detected [facility] Healthcare ADELITA GLABRATA 0 [facility] ADELITA GLABRATA Not detected [facility] ADELITA KRUSEI 0 [facility] Healt hcare ADELITA KRUSEI Not detected [facility] CITROBACTER FREUNDII 0 [facility] Healthcare CITROBACTER FREUNDII Not detected NO [facility] Healthcare ENTEROBACTER AEROGENES, CLOACAE 0 [facility] Healthct re ENTEROBACTER AEROGENES, CLOACAE Not detected [facility] re ENTEROCOCCUS FAECALIS, FAECIUM 0 [facility] Healthcar e ENTEROCOCCUS FAECALIS, FAECIUM Not detected [facility] Healthcar e ESCHERICHIA COLI 0 [facility] Hea lthcare ESCHERICHIA COLI Not detected [facility] H ealthcare Interpretation and review of laboratory results Abnormal [facility] KLEBSIELLA PNEUMONIAE, OXYTOCA 0 [facility] KLEBSIELLA PNEUMONIAE, OXYTOCA Not detected [facility] are MORGANELLA MORGANII 0 [facility] MORGANELLA MORGANII Not detected [facility] PROTEUS MIRABILIS, VULGARIS 0 [facility] PROTEUS MIRABILIS, VULGARIS Not [facility] PSEUDOMONAS AERUGINOSA 0 [facility] PSEUDOMONAS AERUGINOSA Not detected [facility] SERRATIA MARCESCENS 0 [facility] SERRATIA MARCESCENS Not detected [facility] STAPHYLOCOCCUS AUREUS 0 [facility] STAPHYLOCOCCUS AUREUS Not detected [facility] STREPTOCOCCUS AGALACTIAE (GROUP B STREP) 23.713 Abnormal [facility] STREPTOCOCCUS AGALACTIAE (GROUP B STREP) Detected Abnormal [facility] STREPTOCOCCUS PYOGENES (GROUP A STREP) 0 [facility] STREPTOCOCCUS PYOGENES (GROUP A STREP) Not detected [facility] Health[facility] e ALL CBC WITH AUTO DIFFon BASOPHILS ABSOLUTE AUTO 0.0 [facility] Basophils/100 WBC (Bld) 0.3 % 0.2 - 2.0 % [facility] Eosinophils/100 WBC (Bld) 0.9 % 0.9 - 7.0 % [facility] Erythrocyte distribution width (RBC) [Ratio] 12.1 % 11.0 - 15.0 % [facility] Hematocrit (Bld) [Volume fraction] 38.8 % 36.0 - 48.0 % [facility] Hemoglobin (Bld) [Mass/Vol] 13.4 g/dL 12.0 - 16.0 g/dL [facility] IMMATURE GRANULOCYTES ABS AUTO 0.02 [facility] Immature granulocytes/100 WBC (Bld) 0.2 % 0.0 - 0.5 % [facility] Interpretation and review of laboratory results Abnormal [facility] LYMPHOCYTES ABSOLUTE AUTO 2.9 [facility] Lymphocytes/100 WBC (Bld) 29.4 % 20.5 - 60.0 % [facility] MCH (RBC) [Entitic mass] 30.0 pg 26.7 - 34.0 pg [facility] MCHC (RBC) [Mass/Vol] 34.5 g/dL 29.9 - 35.2 g/dL [facility] MCV (RBC) [Entitic vol] 87.0 fL 81.0 - 99.[address] [facility] [address] MONOCYTES ABSOLUTE AUTO 0.6 [facility] Monocytes/100 WBC (Bld) 6.5 % 1.7 - 12.0 % [facility] NEUTROPHILS ABSOLUTE AUTO 6.1 [facility] Neutrophils/100 WBC (Bld) 62.7 % 43.0 - 75.0 % [facility] Platelet mean volume (Bld) [Entitic vol] 8.9 fL Low 9.5 - 13.5 fL [facility] EO # 0.1 [facility] PLT 260 [facility] RBC 4.46 [facility] WBC 9.7 [facility] Franky 01-28-2024 L Specimen: [id number] Received: 01/28/24 Status: LUANA Lee Num: [id number] Spec Type: Surgical Subm Dr: Chirag Ho Tissues: A Fallopian Tube - Sterilization (JONELLE FAL TUBES) Procedures: HE/2, Gross/Micro L2 Age/ Patient Sex Location Account Attending Physician Cecilia Salas 49/F LABELL [id number] Chirag Ho SPEC NUM: [id number] RECD: 01/28/24 STATUS: LUANA LEE NUM: [id number] LOLI: 01/28/[address]: Chirag Ho ENTERED: 01/28/24 [facility] DR: James,Lab SPEC TYPE: Surgical DEPT: WERNER DORMAN ENTERED BY: [id number] RECV BY: [id number] ORDERED: HE/2, Gross/Micro L2 ORDERED: HE/2, Gross/Micro L2 Pathological Diagnosis Bilateral fallopian tubes, bilateral tubal ligation: - Completely transected bilateral fallopian tubes with multiple paratubal cysts. Clinical Information Request for sterilization, menorrhagia, abnormal uterine bleeding, pelvic pain Gross Description The specimen is received in formalin with the patient's name and bilateral fallopian tubes and consists of two fimbriated fallopian tubes. The first measures 5.5 cm in length with a diameter of 0.6 cm. There are attached paratubal cysts ranging in size from 0.2 to 0.7 cm in greatest dimension. The second fallopian tube measures 5.5 cm in length with a diameter of 0.5 cm. There are multiple attached paratubal cysts ranging in size from 0.2 to 1.2 cm in greatest dimension. The specimen is serially sectioned. Die Baker sections are submitted as follows: A1: first fallopian tube A2: second fallopian tube Microscopic Description Microscopic examination is performed. -------- Specimen: [id number] Received: 01/28/24 Status: LUANA Lee Num: [id number] Spec Type: Surgical Subm Dr: Chirag Ho Tissues: A Fallopian Tube - Sterilization (JONELLE FAL TUBES) Procedures: HE/Rosales, Gross/Radha L2 -------- Patient: Cecilia Salas [id number] (Continued) -------- Specimen: [id number] Received: 01/28/24 (Continued) Signed (signature on file) Kody Harley MD 02/17/24 1008 -------- Specimen: [id number] Received: 01/28/24 Status: LUANA Lee Num: [id number] Spec Type: Surgical Subm Dr: Chirag Ho Tissues: A Fallopian Tube - Sterilization (JONELLE FAL TUBES) Procedures: HE/2, Hector/Radha L2 -------- Patient: Cecilia Salas [id number] (Continued) -------- Specimen: [id number] Received: 01/28/24 (Continued) CPT Codes 12161 -------- -------- Specimen: [id number] Received: 01/28/24 Status: LUANA Lee Num: [id number] Spec Type: Surgical Subm Dr: Chirag Ho Tissues: A Fallopian Tube - Sterilization (JONELLE FAL TUBES) Procedures: HE/2, Gross/Micro L2 -------- Patient: Cecilia Salas [id number] (Continued) -------- Signed (signature on file) Kody Harley MD 02/17/24 1008 Normal [facility] TB PREG QUANT HCGon 024 HCG QUANTITATIVE <1 mIU/mL [facility] Comment on above: 5-50 0.2-1 WEEK 50-500 1-2 WEEKS 100-5,000 2-3 WEEKS 500-10,000 3-4 WEEKS 1,000-50,000 4-5 WEEKS 10,000-100,000 5-6 WEEKS 15,000-200,000 6-8 WEEKS 10,000-100,000 2-3 MONTHS [facility] ALL BASIC METABOLIC PANELon 01-14-2024 Anion gap [Moles/Vol] 10.3 mmol/L [facility] Calcium [Mass/Vol] 9.3 mg/dL 8.5 - 10. 1 mg/dL [facility] Chloride [Moles/Vol] 100 mmol/L 98 - 10 7 mmol/L [facility] CO2 [Moles/Vol] 29.7 mmol/L 21.0 - 32.0 mmol/L [facility] Creatinine [Mass/Vol] 0.65 mg/dL 0.55 - 1.02 mg/dL [facility] GFR/1.73 sq M.predicted CKD-EPI (S/P/Bld) [Vol rate/Area] >60 60 - PINF [facility] Glucose [Mass/Vol] 187 mg/dL High 74 - 106 mg/dL NO [facility] Interpretation and review of laboratory results Abnormal [facility] Potassium [Moles/Vol] 4.0 mmol/L 3.5 - 5.1 mmol/L [facility] Sodium [Moles/Vol] 136 mmol/L 136 - 145 mmol/L [facility] TBH EGFR-NON AF [place]OU[place]FR[place] >60 60 - PINF [facility] Urea nitrogen [Mass/Vol] 16.0 mg/dL 7.0 - 18.0 mg/dL [facility] Urea nitrogen/Creatinine [Mass ratio] 24.6 mg/mg [facility] HCG ( test) Ql (U)O rdered By: Marguerite Chase on 12-30-2023 Interpretation and review of laboratory results Normal [facility] Healthcare Work Phone: Preg Test, Ur Negative [facility] care Work Phone: [facility] e Work Phone: Franky 12-30-2023 L Specimen: [id number] Received: 12/31/23 Status: LUANA Lee Num: [id number] Spec Type: Surgical Subm Dr: Chirag Ho Tissues: A Endometrium - Biopsy (ENDOMETRIUM) Procedures: HE/2, Gross/Micro L4 Age/ Patient Sex Location Account Attending Physician Cecilia Salas 48/F LABELL [id number] Chirag Ho SPEC NUM: [id number] RECD: 12/31/23 STATUS: LUANA LEE NUM: [id number] LOLI: 12/30/23- SUBM DR: Chirag Ho ENTERED: 12/31/23 [facility] DR: Fredy Ramirez SPEC TYPE: Surgical DEPT: WERNER DORMAN ENTERED BY: [id number] RECV BY: [id number] ORDERED: HE/2, Gross/Micro L4 ORDERED: HE, Gross/Micro L4 Pathological Diagnosis Endometrium, biopsy: Secretory endometrium. Clinical Information Menorrhagia Gross Description The specimen was received in formalin with the patient's name and endometrium and consists of multiple calix-pink soft tissue fragments measuring 1.5 x 1.0 x 0.4 cm in aggregate. The specimen is filtered and entirely submitted in cassette A1. CPT Codes 49104 -------- -------- Specimen: [id number] Received: 12/31/23 Status: LUANA Lee Num: [id number] Spec Type: Surgical Subm Dr: Chirag Ho Tissues: A Endometrium - Biopsy (ENDOMETRIUM) Procedures: ALESSIA/Rosales, Gross/Micro L4 -------- Patient: Cecilia Salas [id number] (Continued) -------- Signed (signature on file) Amado Ring MD 01/06/24 1608 Normal [facility] IGP,APTIMA HPV,AGE GDLNon AGE GDLN ACOG TESTING Note . [facility] Comment on above: TESTS RESULT FLAG U NITS REF RANGE LAB Clinician Provided Cytology Information Source.............Cervix;Endocervix No. of containers..01 ThinPrep Vial Age Algo ACOG Sofi... 30-65 01 FLAG LEGEND: L-Low Normal,H-High Normal,LL-Alert Low,HH-Alert High <-Panic Low,>-Panic High,A-Abnormal,AA-Critical Abnormal Performed at: 01 =G [facility] [address] [address] Smitha Larson MD, HPV APTIMA Negative Negative [facility] e Comment on above: This nucleic acid am plification test detects fourteen high- risk HPV types (16,18,31,33,35,39,45,51,52,56,58,59,66,68) without differentiation. Performed at: = - [facility], [place] [id number] Medicine Assistant: Smitha Larson MD, Phone: [phone] Performed at: - [facility] [id number] Medicine Assistant: Smitha Larson MD, Phone: [phone] IGP, APTIMA HPV, RFX 16/18,45 Note . [facility] Comment on above: TESTS RESULT FLAG UN ITS REF RANGE LAB DIAGNOSIS: 02 OTHER: NEGATIVE FOR SQUAMOUS INTRAEPITHELIAL LESION (NSI). ENDOMETRIAL CELLS ARE PRESENT IN A WOMAN >= 45 YEARS OF AGE. THE SHEDDING OF ENDOMETRIAL CELLS IN BERNICE-POST MENOPAUSAL WOMEN MAY REPRESENT BENIGN ENDOMETRIAL LESIONS, HORMONAL ALTERATIONS OR UNCOMMONLY, ENDOMETRIAL ABNORMALITIES. Recommendation: 02 Suggest follow up as clinically appropriate. Specimen adequacy: 02 Satisfactory for evaluation. Endocervical and/or squamous metaplastic cells (endocervical component) are present. Performed by: 03 Maranda Castellon, Tube Handler (ASCP) Electronically si... 02 Luis Fernando Ardon MD, Pathologist . 02 Note: Note 02 The Pap smear is a screening test designed to aid in the detection of premalignant and malignant conditions of the uterine cervix. It is not a diagnostic procedure and should not be used as the sole means of detecting cervical cancer. Both false-positive and false-negative reports do occur. Test Methodology: Note 02 This liquid based ThinPrep(R) pap test was screened with the use of an image guided system. HPV Genotype Reflex Note 02 Criteria not met, HPV Genotype not performed. FLAG LEGEND: L-Low Normal,H-High Normal,LL-Alert Low,HH-Alert High <-Panic Low,>-Panic High,A-Abnormal,AA-Critical Abnormal Performed at: 02 WB [facility] [address] [place] [address] Smitha Larson MD, 03 KWCYT [facility] [address] [place] [address] Reyes Edgar MD, BRUSH-SPATULA CERVIX ENDOCERVIX [facility] MAMM SCREENING BILATERAL W C photographer assistant 11-12-2023 MAMM SCREENING BILATERAL W CAD MAMM SCREENING BILATERAL W CAD EXAM: MAMM SCREENING BILATERAL W CAD, 11/11/2023 3:21 PM CLINICAL INDICATIONS: Screening, Encounter for screening mammogram for malignant neoplasm of breast COMPARISON: Multiple prior mammograms were viewed for comparison dating back to 03/29/2015 TECHNIQUE: Bilateral digital tomosynthesis MLO and CC views of the breasts were obtained, with creation of synthetic 2D views. Computer aided detection was utilized. FINDINGS: There are scattered areas of fibroglandular density. There are no suspicious masses, calcifications, or areas of architectural distortion. IMPRESSION: No mammographic evidence of malignancy. BI-RADS: BI-RADS 1 - Negative Recommendation: Routine screening mammogram in 1 year. Finalized by Marcie Jiang MD on 11/12/2023 7:30 AM 1 b MAMM 1 YR Normal [facility] US PELVIC COMPLETE W/ TVon 05-08-2022 US [...] 03-22-2019 Age Gdln ACOG Testing 30-65 Normal [facility] Comment on above: Performed By: #### [id number] #### [facility] [address] [place] [address] Jacobo Haji COMMENT Comment Normal [facility] Comment on above: Result Comment: [id number] [id number] Performed at: WB Performed By: #### [id number] #### [facility] [address] [address] Jacobo Haji DIAGNOSIS: Comment Normal [facility] Comment on above: Result Comment: NEGA TIVE FOR INTRAEPITHELIAL LESION OR MALIGNANCY. Performed at: WB Performed By: #### [id number] #### [facility] [address] [place] [address] Jacobo Haji HPV Aptima Negative Normal Negative [facility] Comment on above: Result Comment: This nucleic acid amplification test detects fourteen high-risk HPV types (16,18,31,33,35,39,45,51,52,56,58,59,66,68) without differentiation. Performed at: =G Performed By: #### [id number] #### [facility] [address] [address] Jacobo Haji Methodology: Comment Normal [facility] Comment on above: Result Comment: This liquid based ThinPrep(R) pap test was screened with the use of an image guided system. Performed at: WB Performed By: #### [id number] #### [facility] [address] [place] [address] Jacobo Haji Note: Comment Normal [facility] Comment on above: Result Comment: The Pap smear is a screening test designed to aid in the detection of premalignant and malignant conditions of the uterine cervix. It is not a diagnostic procedure and should not be used as the sole means of detecting cervical cancer. Both false-positive and false-negative reports do occur. . Performed at: WB Performed By: #### [id number] #### [facility] [address] [place] [address] Jacobo Raissa Performed by: Comment Normal [facility] Comment on above: Result Comment: Rosa Isela Harris, Tube Handler (ASCP) Performed at: WB Performed By: #### [id number] #### [facility] [address] [place] [address] Jacobosameer Haji Specimen adequacy: Comment Normal [facility] Comment on above: Result Comment: Sati sfactory for evaluation. Endocervical and/or squamous metaplastic cells (endocervical component) are present. Performed at: WB Performed By: #### [id number] #### [facility] [address] [place] [address] Jacobo Crockeren . . Normal [facility] Comment on above: Result Comment: Perf ormed at: WB Performed By: #### [id number] #### [facility] [address] [place] [address] Jacobosameer Haji Vital Signs Date Time Vital Sign Value Performing Clinician Zheni litsteve 07-27-2024 09:32-0400 Body height 167.6 cm Medardo Multani DO Work Phone: [facility] 07-27-2024 09:32-0400 Body mass index (BMI) [Ratio] 29.05 kg/m2 Medardo Multani DO Work Phone: [facility] 07-27-2024 09:32-0400 Body weight 81.65 kg Medardo Multani DO Work Phone: [facility] 02-03-2024 10:27-0400 Body weight 82.92 kg Chirag Ho DO Work Phone: [facility] 02-03-2024 10:27-0400 Diastolic blood pressure 70 mm[Hg] Chirag Vic DO Work Phone: [facility] 02-03-2024 10:27-0400 Systolic blood pressure 120 mm[Hg] Chirag Vic DO Work Phone: [facility] 12-30-2023 10:33-0400 Body weight 83.37 kg Chirag Vic DO Work Phone: [facility] 12-30-2023 10:33-0400 Diastolic blood pressure 70 mm[Hg] Chirag Vic DO Work Phone: [facility] 12-30-2023 10:33-0400 Systolic blood pressure 122 mm[Hg] Chirag Vic DO Work Phone: [facility] 12-07-2023 13:25-0400 Body weight 83.52 kg Mary LINDO Work Phone: [facility] 12-07-2023 13:25-0400 Diastolic blood pressure 78 mm[Hg] Mary LINDO Work Phone: [facility] 12-07-2023 13:25-0400 Systolic blood pressure 116 mm[Hg] Mary LINDO Work Phone: [facility] Healthcare Encounters Encounter Date Encounter Type Care Provider Facility Start: 09-26-2024 End: 09-26-2024 Bamboo flowsheet Ryanne S Lemos AUD Work Phone: [facility] Start: 09-26-2024 End: 09-26-2024 Bamboo flowsheet Ryanneedie Lemos AUD Work Phone: [facility] Start: 09-26-2024 End: 09-26-2024 Patient encounter procedure Ryanne Lemos AUD Work Phone: [facility] Comment on above: BPPV (benign paroxys mal positional vertigo), right (Primary Dx) Start: 09-26-2024 End: 09-26-2024 ambulatory RYANNE LEMOS Not Available Start: 07-27-2024 End: 07-27-2024 Bamboo flowsheet Cleo Antunez CCC-A Work Phone: [facility] Start: 07-27-2024 End: 07-27-2024 Bamboo flowsheet Cleo Antunez CCC-A Work Phone: [facility] Start: 07-27-2024 End: 07-27-2024 Office outpatient new 45 minutes Medardo Multani DO Work Phone: [facility] Comment on above: Sensorineural hearin g loss (SNHL) of both ears (Primary Dx); Chronic rhinitis; Benign paroxysmal positional vertigo of right ear; Recurrent acute suppurative otitis media without spontaneous rupture of tympanic membrane, unspecified laterality Start: 07-27-2024 End: 07-27-2024 Clinical Support Cleo Antunez CCC-A Work Phone: [facility] Comment on above: Sensorineural hearin g loss (SNHL) of both ears (Primary Dx); Eustachian tube dysfunction, bilateral; Dizziness Start: 05-26-2024 End: 05-26-2024 Emergency department patient visit [facility] Start: 05-24-2024 End: 05-24-2024 Emergency department patient visit [facility] Start: 02-03-2024 End: 02-03-2024 Bamboo flowsheet Chirag Vic DO Work Phone: [facility] Start: 02-03-2024 End: 02-03-2024 Bamboo flowsheet Chirag Vic DO Work Phone: [facility] Start: 02-03-2024 End: 02-03-2024 Postop follow up visit related to original px Chirag Vic DO Work Phone: [facility] Comment on above: Postoperative examin ation; Urinary tract infection without hematuria, site unspecified Start: 02-03-2024 End: 02-03-2024 ambulatory CHIRAG VIC Not Available Start: 02-01-2024 End: 02-03-2024 External Result Encounter Chirag Vic DO Work Phone: [facility] Unsolicited Start: 02-01-2024 End: 02-03-2024 External Result Encounter Chirag Vic DO Work Phone: [facility] Unsolicited Start: 01-28-2024 End: 01-28-2024 Clinisync Result Encounter Chirag Vic DO Work Phone: [facility] Unsolicited Start: 01-28-2024 End: 01-28-2024 Clinisync Result Encounter Chirag Vic DO Work Phone: [facility] Unsolicited Start: 01-28-2024 End: 01-28-2024 [facility] Start: 01-28-2024 End: 01-28-2024 Departed Referred DO Chirag Vic Work Phone: [facility] Start: 01-14-2024 End: 01-17-2024 Clinisync Result Encounter Chirag Vic DO Work Phone: [facility] Unsolicited Start: 01-14-2024 End: 01-17-2024 Clinisync Result Encounter Chirag Vic DO Work Phone: [facility] Unsolicited Start: 12-30-2023 End: 12-30-2023 ambulatory Chirag [facility] Work Phone: Start: 12-30-2023 End: 12-30-2023 Departed Referred DO Chirag Vic Work Phone: [facility] Start: 12-30-2023 End: 12-30-2023 Patient encounter procedure Chirag Vic DO Work Phone: [facility] Comment on above: Pre-op examination; Request for sterilization; Menorrhagia with regular cycle; Abnormal uterine bleeding (AUB); Pelvic pain; Yeast infection; Urinary tract infection without hematuria, site unspecified Start: 12-30-2023 End: 12-30-2023 Preprocedural examination done Chirag Robertsono DO Work Phone: [facility] Healthcare Start: 12-30-2023 End: 12-30-2023 ambulatory CHIRAG ROBERTSONO Not Available Start: 12-07-2023 End: 12-07-2023 Bamboo flowsheet Mary LINDO Work Phone: [facility] Start: 12-07-2023 End: 12-15-2023 Bamboo flowsheet Mary LINDO Work Phone: [facility] Start: 12-07-2023 End: 12-15-2023 Clinisync Result Encounter Mary LINDO Work Phone: [facility] External Department Unsolicited Start: 12-07-2023 End: 12-07-2023 ambulatory MARY SHELLEY Not Available Start: 12-07-2023 End: 12-07-2023 Patient encounter procedure Mary LINDO Work Phone: [facility] Healthcare Work Phone: Start: 12-07-2023 End: 12-07-2023 Periodic preventive med est patient 40-64yrs Mary LINDO Work Phone: [facility] Comment on above: Well woman exam with routine gynecological exam; Breast cancer screening by mammogram Start: 11-11-2023 End: 11-11-2023 ambulatory BETSEY Butler [facility] Start: 09-28-2023 End: 09-28-2023 ambulatory ESE Ashley [facility] Start: 03-08-2023 End: 03-09-2023 ambulatory BESSY CYR Not Available Start: 03-20-2019 End: 03-20-2019 Patient encounter procedure MARLEE MORENO Facility:H1 Procedures Date Procedure Procedure Detail Performing Clinician Start: 07-27-2024 AUDITORY FUNCTION TESTS Cleo Antunez [facility] Work Phone: Start: 02-01-2024 URINARY TRACT INFECT ION (HTRX) Chirag Vic DO Work Phone: Start: 01-28-2024 ALL CBC WITH AUTO DIFF Chirag Vic DO Work Phone: Start: 01-28-2024 TBH PREG QUANT HCG Core y Vic DO Work Phone: Start: 01-14-2024 ALL BASIC METABOLIC PANEL Chirag Vic DO Work Phone: Start: 12-30-2023 Urine test visual color cmprsn meths Chirag Vic DO Work Phone: Start: 12-07-2023 IGP,APTIMA HPV,AGE GDLN Mary LINDO Work Phone: Start: 11-11-2023 Mammography Mary LINDO Work Phone: Start: 09-28-2023 Follow-up visit Follow-up ESE [facility]IRA Start: 11-23-2022 Colonoscopy Mary LINDO Work Phone: Plan of Treatment Date Care Activity Detail Author Start: 11-23-2032 Screening for malignant neoplasm of colon [facility] Start: 12-18-2024 Influenza vaccination Influenz a Vaccine (Season Ended) [facility] Start: 12-11-2024 End: 12-11-2024 Patient encounter procedure 12/11/2024 2:00 PM EDT Office Visit [facility] [address] [place] [address] Chirag Ho, DO [address] [place] [address] [facility] Start: 11-10-2024 Screening for malignant neoplasm of breast Mammogram [facility] Start: 09-26-2024 End: 09-26-2024 Patient encounter procedure 09/26/2024 10:30 AM EDT Office Visit [facility] [address] [place] [address] Ryanne Lemos, AUD [address] [place] [address] Arrived [facility] Comment on above: Arrived Start: 09-08-2024 End: 09-08-2024 Patient encounter procedure 09/08/2024 4:00 PM EDT Office Visit [facility] [address] [place] [address] Medardo Multani, DO [address] [place] [address] [facility] Start: 08-24-2024 End: 08-24-2024 Clinical Support 08/24/2024 11:00 AM EDT Clinical Support [facility] [address] [place] [phone] Cleo Antunez [facility] [address] [place] [address] [facility] Start: 07-27-2024 End: 07-27-2024 Clinical Support [facility] Comment on above: Arrived Start: 02-03-2024 End: 02-03-2024 Patient encounter procedure [facility] Comment on above: Arrived Start: 01-28-2024 End: 01-28-2024 Patient encounter procedure 01/28/2024 8:00 AM EDT Procedure Visit [facility] Chirag Ho, DO [address] [place] [address] [facility] Start: 12-30-2023 End: 12-30-2023 Patient encounter procedure 12/30/2023 10:30 AM EDT Procedure Visit [facility] [address] [place] [id number] Chirag Ho, DO [address] [place] [address] [facility] Start: 12-19-2023 Influenza vaccination Influenza Vacc ine (#1) [facility] Start: 12-07-2023 End: 02-05-2025 MG Breast - bilateral Screening Bilateral screening mammogram Imaging Routine Breast cancer screening by mammogram Expected: 12/07/2023 (Approximate), Expires: 02/05/2025 [facility] Work Phone: Comment on above: Expected: 12/07/2023 (Approximate), Expires: 02/05/2025 Start: 01-14-2006 Screening for malignant neoplasm of cervix [facility] Start: 01-14-1997 Screening for malignant neoplasm of cervix Pap Smear [facility] Start: 01-14-1995 Urine screening for protein Diabetes: Urine Protein Screening [facility] Start: 01-14-1986 Glaucoma screening Diabetes: R etinopathy Screening [facility] Start: 1976 Hemoglobin A1c measurement Diabetes: Hemoglobin A1C [facility] Start: 1976 Screening for malignant neoplasm of colon [facility] THIN PREP TIS PAP AN D HR HPV DNA THIN PREP TIS PAP AND HR HPV DNA Pathology and Cytology Routine Well woman exam with routine gynecological exam Ordered: 12/07/2023 [facility] Comment on above: Ordered: 12/07/2023 Tissue exam Tissue exam Path ology and Cytology Routine Pre-op examination Request for sterilization Menorrhagia with regular cycle Abnormal uterine bleeding (AUB) Pelvic pain Ordered: 12/30/2023 [facility] Work Phone: Comment on above: Ordered: 12/30/2023 Immunizations Immunization Date Immunization Notes Care Provider Darrion quintanilla 10-30-2021 hepatitis B vaccine, adult dosage [facility] Work Phone: [facility] 08-21-2021 hepatitis B vaccine, adult dosage [facility] Work Phone: [facility] 03-18-2021 Seasonal, quadrivale nt, recombinant, injectable influenza vaccine, preservative free [facility] Work Phone: [facility] 03-18-2021 influenza virus vacc ine, unspecified formulation Mary LINDO Work Phone: [facility] Payers Date Payer Category Payer Self-pay [id number] 2022 Private Health Insurance [employer] [id number] 2022 Unknown [id number] 1976 Unknown [id number]. 593 1976 Unknown [id number] [id number]. 1258 1976 Unknown [id number] [id number]. 1285 1976 Unknown [id number] [id number]. 1285 1976 Unknown [id number] [id number]. 1285 1976 Unknown [id number] [id number]. 1285 1976 Unknown [id number] [id number]. 1258 1976 Unknown [id number] [id number]. 1258 1976 Unknown [id number] [id number]. 1259 1976 Unknown [id number] [id number]. 1259 1976 Unknown [id number] [id number]. 1259 1976 Unknown [id number] [id number]. 1259 1959 Unknown [id number] Social History Date Type Detail Facility [facility] Work Phone: Start: 1975 Sex Assigned At Female F [facility] Tobacco smoking stat [facility] Tobacco smoking consumption unknown [facility] Start: 12-07-2023 Gender identity Identifies as female gender (finding) [facility] Start: 12-07-2023 Sexual orientation Homosexual (findi ng) [facility] Start: 07-27-2024 Tobacco smoking stat [facility] Never smoked tobacco [facility] Start: 07-27-2024 Tobacco use and exposure Smokeless tobacco non-user [facility] Start: 07-27-2024 Alcoholic beverage intake Ex-drinker (finding) [facility] Start: 07-27-2024 History of Social function [facility] Start: 07-27-2024 Tobacco use panel [facility] Healthcare Clinical Notes 12-07-2023 to 09-26-2024 ESTEPHANIA Nolan - 09/26/2024 10:30 AM Duong Multani DO - 07/27/2024 10:00 AM Dia Antunez CCC-A - 07/27/2024 9:00 AM Brian Phoenix LPN - 02/03/2024 10:30 AM EDT Note Date & Type Note Facility 09-26-2024 History of Present illness Narrative Aníbal Maneuver: Patient was seen today to have the Aníbal Maneuver completed. Previous history indicated a positive response in the head right supine position. The Blair-Hallpike maneuver was completed head right, supine. Patient experienced slight dizziness and minimal nystagmus was observed. Continued rotation without any symptoms or difficulty. Repeated the Aníbal maneuver a second time with minimal symptoms observed or reported. Patient encouraged to be cautious of head and neck movements for the next 24-48 hours. She was advised to follow up with Dr. Multani if symptoms do not improve. documented in this encounter [facility] 07-27-2024 History of Present illness Narrative Subjective Patient ID: Cecilia Salas is a 49 y.o. female who presents for Otitis Media (New Patient : recurrent ear infections) HPI 49-year-old white female presents today for evaluation of recurring episodes of ear infections, nasal congestion and episodic dizziness. Patient describes difficulties going on for several months. Has been treated with antibiotics for ear infections on 2 or 3 occasions. Also describes nasal congestion. Has noticed severe dizziness when turning over in bed on the right side. Symptoms usually last approximately 15 seconds. Describes plugging sensation of her ears. Presents today for further evaluation and treatment Review of Systems Any difficulties with pain. Denies shortness of breath. Currently not having any difficulties with dizziness. Nasal congestion is present. The rest of her review of systems is negative Allergies as of 07/27/2024 - Reviewed 07/27/2024 Allergen Reaction Noted Bee venom 06/28/2020 Beeswax 09/10/2018 Past Medical History: Diagnosis Date Anemia 09/09/2022 Anxiety 09/09/2022 Diabetes mellitus type 2, controlled ([facility]) 09/09/2022 Essential hypertension ([facility]) 01/25/2020 Hyperlipidemia ([facility]) 09/09/2022 Hypothyroidism ([facility]) 09/09/2022 Kidney stone 09/09/2022 Murmur, cardiac 01/25/2020 Palpitation 01/25/2020 Current Outpatient Medications: atorvastatin (Lipitor) 20 MG tablet, Take 20 mg by mouth in the morning., Disp: , Rfl: cholecalciferol (Vitamin D-3) 50 MCG (1999) tablet, Take 2,000 Units by mouth in the morning., Disp: , Rfl: levothyroxine (Synthroid, Levoxyl) 100 MCG tablet, Take 100 mcg by mouth in the morning., Disp: , Rfl: metFORMIN (Glucophage) 500 MG tablet, Take 1,000 mg by mouth in the morning and 1,000 mg in the evening. Take with meals., Disp: , Rfl: montelukast (Singulair) 10 MG tablet, Take 10 mg by mouth Daily, Disp: , Rfl: Past Surgical History: Procedure Laterality Date DILATION AND CURETTAGE OF UTERUS ENDOMETRIAL ABLATION 01/28/2024 with Hysteroscopy SALPINGECTOMY 01/28/2024 robotic assisted Social History Socioeconomic History Marital status: Spouse name: Not on file Number of children: Not on file Years of education: Not on file Highest education level: Not on file Occupational History Not on file Tobacco Use Smoking status: Never Smokeless tobacco: Never Substance and Sexual Activity Alcohol use: Not Currently Drug use: Defer Sexual activity: Not on file Other Topics Concern Not on file Social History Narrative Not on file Social Drivers of Health Financial Resource Strain: Not on file Food Insecurity: No Food Insecurity (05/26/2024) Received from [facility] Hunger Screening Within the past 12 months we worried whether our food would run out before we got money to buy more.: Never True Within the past 12 months the food we bought just didn't last and we didn't have money to get more.: Never True Transportation Needs: Not on file Physical Activity: Not on file Stress: Not on file Social Connections: Not on file Intimate Partner Violence: Not on file Housing Stability: Not on file Objective ENT Physical Exam General Examination: General overview: Normal, age-appropriate, no evidence of distress Head: Normocephalic, atraumatic Eyes: Pupils are equally round and reactive to light and accommodation, extraocular muscles are intact Ears: External ear architecture within normal limits, ear canals are patent, tympanic membranes are intact. Review of her audiogram reveals bilateral high-frequency sensorineural hearing loss with normal tympanograms. Review of her Hallpike maneuver reveals positive findings on the right. Nose: External nose unremarkable, nares patent, septum intact, mild deviation of the nasal septum to the right. Bilateral congestion is noted. Oral cavity: Mucosa moist, no evidence of ulcer, mass, or lesion Throat: Clear Neck/thyroid: Neck supple, full range of motion, no cervical lymphadenopathy, no evidence of thyromegaly Lymph nodes: No cervical lymphadenopathy Skin: Warm and dry, no evidence of suspicious lesions, no rash Heart: No jugular venous distention, point of maximal impulse normal Lungs: Good air movement, no audible wheezing, no shortness of breath Chest: Normal shape and expansion Abdomen: Normal, soft, nontender, nondistended Musculoskeletal: Cervical spine normal, full range of motion Extremities: No clubbing, cyanosis, or edema Peripheral pulses: 2+ radial, 2+ carotid Neurologic: Alert and oriented, cranial nerves 2-12 are grossly intact Psych: Alert and oriented, normal affect, no evidence of distress Assessment/Plan Diagnoses and all orders for this visit: Sensorineural hearing loss (SNHL) of both ears Comments: Recommend repeat audiogram be completed in 1 year Chronic rhinitis Comments: This patient on a steroid nasal spray to maximize nasal and Eustachian tube function Benign paroxysmal positional vertigo of right ear Comments: We will schedule this patient for the Aníbal maneuver to reposition inner ear sediment Recurrent acute suppurative otitis media without spontaneous rupture of tympanic membrane, unspecified laterality Comments: Patient will call this office if she has another episode of severe ear infection documented in this encounter [facility] 07-27-2024 History of Present illness Narrative History: Pt was referred to ENT because of recurrent ear infections. Pt stated she had COM and tubes as a child. Ear infections stopped until 1 1/2 years ago. Pt reports frequent bilateral ear infections, sinus infections, periodic tinnitus, periodic pressure in her ears and head, and balance problems. Her head feels full and her ears pop. Her hearing fluctuates. She has seen multiple practitioners for these issues but her symptoms have not resolved. Pt denies exposure to excessive noise. Otoscopic Exam: Ear canal clear and TM intact AU Pure Tone Audiometry Pt claustrophobic - quintanilla door open during test Right Ear: Mild sensorineural hearing loss above 4K Hz Left Ear: Mild to moderate sensorineural hearing loss above 4K Hz Speech Audiometry Pt claustrophobic - quintanilla door open during test Right SRT = 15 dB and word discrimination score at 50 dBHL = 100% Left SRT = 15 dB and word discrimination score at 50 dBHL = 100% Tympanometry Right Ear: Type A tympanogram Left Ear: Type A tympanogram Hallpike: Positive head right, worse sit to supine Negative head left documented in this encounter [facility] 02-03-2024 History of Present illness Narrative Reason for Appointment: Patient ID: Cecilia Salas is a 49 y.o. female who presents for Post-op Visit Patient presents today for 1 Week Post Op Follow Up appointment. and Follow up appointment to discuss results. MEDICATIONS Current Outpatient Medications Medication Instructions atorvastatin (LIPITOR) 20 mg, Daily RT cholecalciferol (VITAMIN D-3) 2,000 Units, Daily RT levothyroxine (SYNTHROID, LEVOXYL) 100 mcg, Daily RT metFORMIN (GLUCOPHAGE) 1,000 mg, 2 times daily with meals ALLERGIES Allergies Allergen Reactions Bee Venom Beeswax PROBLEMS Active Ambulatory Problems Diagnosis Date Noted Hormone disorder 06/28/2023 Decreased libido 06/28/2023 Resolved Ambulatory Problems Diagnosis Date Noted No Resolved Ambulatory Problems No Additional Past Medical History HISTORY PAST MEDICAL HISTORY SOCIAL HISTORY History reviewed. No pertinent past medical history. Social History Tobacco Use Smoking status: Not on file Smokeless tobacco: Not on file Substance Use Topics Alcohol use: Not on file Drug use: Not on file FAMILY HISTORY No family history on file. SURGICAL HISTORY Past Surgical History: Procedure Laterality Date DILATION AND CURETTAGE OF UTERUS ENDOMETRIAL ABLATION 01/28/2024 with Hysteroscopy SALPINGECTOMY 01/28/2024 robotic assisted REVIEW OF SYSTEMS Review of Systems: Review of Systems Genitourinary: Positive for urgency. All other systems reviewed and are negative. OBJECTIVE Objective: OBGyn Exam Vitals: There is no height or weight on file to calculate BMI. BP: 120/70 No LMP recorded. ASSESSMENT & PLAN ICD-10-CM 1. Postoperative examination Z09 Patient presents for post-operative appointment. Patient had a Robotic Lap bilateral salpingectomy with Nayeli Ablation. Incisions are healing well and patient advised she is able to remove steri-strips with warm water and soap. Discussed urinary complaints and urinary leakage. Advised patient to do Kegel exercises and if patient desires she is able to have PT referral for pelvic floor therapy. Patient to return to clinic for routine annual appointment and as needed. Patient advised to not take a bath until 2 weeks post operatively and patient is able to return to work on 02/08/24 with no restrictions. Documented by Gisselle Phoenix LPN on behalf of: Mary Shelley PA-C documented in this encounter [facility] 12-30-2023 History of Present illness Narrative Reason for Appointment: Patient ID: Cecilia Salas is a 48 y.o. female who presents for Endometrial Biopsy and Pre-op Visit Patient presents today for Pre Op/Endometrial Biopsy appointment. Patient is scheduled to undergo Da Hay assisted Bilateral Laparoscopic Salpingectomy and Endometrial Ablation with Nayeli on 01/28/[address] Ho at [facility]. MEDICATIONS No current outpatient medications ALLERGIES Allergies Allergen Reactions Bee Venom Beeswax PROBLEMS Active Ambulatory Problems Diagnosis Date Noted Hormone disorder 06/28/2023 Decreased libido 06/28/2023 Resolved Ambulatory Problems Diagnosis Date Noted No Resolved Ambulatory Problems No Additional Past Medical History HISTORY PAST MEDICAL HISTORY SOCIAL HISTORY No past medical history on file. Social History Tobacco Use Smoking status: Not on file Smokeless tobacco: Not on file Substance Use Topics Alcohol use: Not on file Drug use: Not on file FAMILY HISTORY No family history on file. SURGICAL HISTORY Past Surgical History: Procedure Laterality Date DILATION AND CURETTAGE OF UTERUS REVIEW OF SYSTEMS Review of Systems: Review of Systems Constitutional: Negative. HENT: Negative. Eyes: Negative. Respiratory: Negative. Cardiovascular: Negative. Gastrointestinal: Negative. Genitourinary: Positive for menstrual problem and pelvic pain. Musculoskeletal: Negative. Skin: Negative. Neurological: Negative. All other systems reviewed and are negative. Hematological: Negative. Endocrine: Negative. Allergic/Immunologic: Negative. OBJECTIVE Objective: Physical Exam Constitutional: Appearance: Normal appearance. She is well-developed. Genitourinary: Vulva normal. Cardiovascular: Rate and Rhythm: Normal rate and regular rhythm. Pulmonary: Effort: Pulmonary effort is normal. Breath sounds: Normal breath sounds. Abdominal: General: Bowel sounds are normal. There is no distension. Palpations: Abdomen is soft. Tenderness: There is no abdominal tenderness. There is no guarding or rebound. Musculoskeletal: General: No swelling. Normal range of motion. Right lower leg: No edema. Left lower leg: No edema. Neurological: Mental Status: She is alert and oriented to person, place, and time. Skin: General: Skin is warm and dry. Psychiatric: Mood and Affect: Mood normal. Behavior: Behavior normal. Vitals and nursing note reviewed. Exam conducted with a nurse informaticist present. Vitals: There is no height or weight on file to calculate BMI. BP: No LMP recorded. ASSESSMENT & PLAN ICD-10-CM 1. Pre-op examination Z01.818 2. Request for sterilization Z30.2 3. Menorrhagia with regular cycle N92.0 4. Abnormal uterine bleeding (AUB) N93.9 5. Pelvic pain R10.2 EMBX: Patient was placed in dorsal lithotomy position with feet in stirrups. A sterile speculum was placed into the vagina and the cervix was visualized. The cervix was grasped with a single tooth tenaculum. The endometrial pipette was placed through the cervix into the uterus, endometrial curettage was performed and sampling was obtained, endometrial curettings were placed in formalin, and single tooth tenaculum was removed. Excellent hemostasis was assured. All instruments were removed from vagina. Patient complaints of UTI and yeast infection, medications sent to pharmacy. Pre Op: Patient is doing well but has desire for sterilization and has complaints of bleeding and pelvic pain. Patient has tried hormone therapy in the past but all attempts to subside patients issues of bleeding have failed. I have discussed conservative management vs. surgical management with the patient in detail and patient desires surgical management at this time. Patient has voiced understanding that a Bilateral Salpingectomy is considered to be permanent and patient will undergo Da Hay assisted Bilateral Laparoscopic Salpingectomy & Endometrial Ablation with Nayeli on 01/28/2024. Surgical consents were signed, mmc was reviewed, and patient is to proceed to [facility] OR. Follow Up: Patient is to follow up between 1-2 weeks post op to assess proper healing and recovery from procedure. Documented by Gisselle Phoenix LPN on behalf of: Chirag Ho DO documented in this encounter [facility] 12-07-2023 History of Present illness Narrative Reason for Appointment: Patient ID: Cecilia Salas is a 48 y.o. female who presents for Well Women Visit Patient presents today for Annual Exam. MEDICATIONS No current outpatient medications ALLERGIES Allergies Allergen Reactions Bee Venom Beeswax PROBLEMS Active Ambulatory Problems Diagnosis Date Noted Hormone disorder 06/28/2023 Decreased libido 06/28/2023 Resolved Ambulatory Problems Diagnosis Date Noted No Resolved Ambulatory Problems No Additional Past Medical History HISTORY PAST MEDICAL HISTORY SOCIAL HISTORY History reviewed. No pertinent past medical history. Social History Tobacco Use Smoking status: Not on file Smokeless tobacco: Not on file Substance Use Topics Alcohol use: Not on file Drug use: Not on file FAMILY HISTORY No family history on file. SURGICAL HISTORY Past Surgical History: Procedure Laterality Date DILATION AND CURETTAGE OF UTERUS REVIEW OF SYSTEMS Review of Systems: Review of Systems Constitutional: Negative. HENT: Negative. Eyes: Negative. Respiratory: Negative. Cardiovascular: Negative. Gastrointestinal: Negative. Genitourinary: Negative. Musculoskeletal: Negative. Skin: Negative. Neurological: Negative. All other systems reviewed and are negative. Hematological: Negative. Endocrine: Negative. Allergic/Immunologic: Negative. OBJECTIVE Objective: Physical Exam Constitutional: Appearance: Normal appearance. Genitourinary: Right Adnexa: not tender and no mass present. Left Adnexa: not tender and no mass present. No cervical discharge. Breasts: Breasts are soft. Right: Normal. Left: Normal. HENT: Head: Normocephalic. Nose: Nose normal. Mouth/Throat: Mouth: Mucous membranes are moist. Cardiovascular: Rate and Rhythm: Normal rate. Pulmonary: Effort: Pulmonary effort is normal. Abdominal: General: Bowel sounds are normal. Palpations: Abdomen is soft. Musculoskeletal: General: Normal range of motion. Cervical back: Normal range of motion. Neurological: General: No focal deficit present. Mental Status: She is alert. Skin: General: Skin is warm and dry. Psychiatric: Mood and Affect: Mood normal. Vitals and nursing note reviewed. Exam conducted with a nurse informaticist present. Vitals: There is no height or weight on file to calculate BMI. BP: 116/78 No LMP recorded. ASSESSMENT & PLAN ICD-10-CM 1. Well woman exam with routine gynecological exam Z01.419 THIN PREP TIS PAP AND HR HPV DNA 2. Breast cancer screening by mammogram Z12.31 Bilateral screening mammogram Bilateral screening mammogram Annual Exam: Patient presents today for an annual exam. Patient states she is doing well. Pt has history of ovarian cysts and menorrhagia. States bleeding is getting worse. Pt would like to be scheduled for ablation to help stop her menses. Pt will also be scheduled for bilateral salpingectomy. Pap was obtained without difficulty. Orders Placed This Encounter Procedures Bilateral screening mammogram Follow Up: Patient is to return in one year for annual unless needed otherwise. Documented by Ne Arellano LPN on behalf of: BELGICA Nogueira documented in this encounter [facility] Evaluation note No assessment inform ation available [facility] Work Phone: Evaluation note Diagnosis Postoperative examination Follow-up examination, following unspecified surgery Urinary tract infection without hematuria, site unspecified [facility] Diagnosis Pre-op examination Request for sterilization Menorrhagia with regular cycle Abnormal uterine bleeding (AUB) Pelvic pain Yeast infection Urinary tract infection without hematuria, site unspecified [facility] Diagnosis Well woman exam with routine gynecological exam Routine gynecological examination Breast cancer screening by mammogram documented [facility] Diagnosis Sensorineural hearing loss (SNHL) of both ears- Primary Eustachian tube dysfunction, bilateral Dizziness Dizziness and giddiness documented [facility] Diagnosis Sensorineural hearing loss (SNHL) of both ears- Primary Chronic rhinitis Benign paroxysmal positional vertigo of right ear Recurrent acute suppurative otitis media without spontaneous rupture of tympanic membrane, unspecified laterality [facility] Diagnosis BPPV (benign paroxysmal positional vertigo), right- Primary documented in this encounter [facility] Summary Purpose Family History No Family History [...] content) DATE CREATED AUTHOR 03/23/2019 [facility] DATE CREATED AUTHOR AUTHOR'S ORGANIZ ATION 03/13/2023 [facility] DATE CREATED AUTHOR AUTHOR'S ORGANIZ ATION 01/02/2024 [facility] DATE CREATED AUTHOR AUTHOR'S ORGANIZ ATION 02/19/2024 [facility] DATE CREATED AUTHOR AUTHOR'S ORGANIZ ATION 05/27/2024 [facility] DATE CREATED AUTHOR AUTHOR'S ORGANIZ ATION 09/27/2024 [facility] Care Teams (unrecognized sec tion and content) Team Status: Inactive Member Role Status Dates Chirag Ho DO Attending Provider Active Start : December 30, 2023 End: December 30, 2023 Team Status: Inactive Member Role Status Dates Chirag Ho DO Attending Provider Active Start : January 28, 2024 End: January 28, 2024 Central Office Repairer Relationship Specialty Start Date End Date Mary Shelley PA [address] [place] [address] PCP - [facility] [employer] 10/18/23 04/18/99 Central Office Repairer Relationship Specialty Start Date End Date Mary Shelley PA [address], [facility] PCP - [facility] [employer] 10/18/23 04/18/99 Central Office Repairer Relationship Specialty Start Date End Date Mary Shelley PA [address] [place] [address] PCP - [facility] [employer] 10/18/23 04/18/99 Central Office Repairer Relationship Specialty Start Date End Date Mary Shelley PA [address] [place] [address] PCP - [facility] [employer] 10/18/23 04/18/99 Central Office Repairer Relationship Specialty Start Date End Date Mary Shelley PA [address] [place] [address] PCP - [facility] [employer] 10/18/23 04/18/99 Central Office Repairer Relationship Specialty Start Date End Date Mary Shelley PA [address] [facility] [address] [place], [facility] PCP - [facility] [employer] 10/18/23 04/18/99 Goals (unrecognized section and content) Goals may be documented in a n alternate sectionGoals may be documented in an alternate section Reason for Visit (unrecogniz ed section and content) Reason Comments Post-op Visit Reason Comments Endometrial Biopsy Pre-op Visit Reason Comments Well Women Visit Reason Comments Otitis Media New Patient : recurr ent ear infections FOR RECORDS PERTAINING TO PATIENTS WHO ARE [...] BE BASED ON THE PRIMARY CLINICAL RECORDS. [employer] provides no warranty or guarantee of the accuracy or completeness of information in this document.
[2025-02-05 11:08] LABS: Age Gdln ACOG Testing Note (.); IGP, Aptima HPV, rfx 16/18,45 Note (.)
== END 2025-01-31 14:38 | disposition home or self-care (01) ==
LOC: LAB 14:37
PROVIDERS: PCP Nurse Practitioner; Visit Provider Physician Assistant
DX: Z01.419 Encounter for gynecological examination (general) (routine) without abnormal findings (principal)
CPT/HCPCS: 87624; 88175